=== PATIENT | female | born 1955 | race Caucasian/White ===

== ENCOUNTER 2017-02-20 15:11 | Emergency (ER) | payer BC ==
[2017-02-20] MEDS ORDERED: METHYLPREDNISOLONE ACETATE 80 MG/ML VIAL IM ONE (15:40)
[2017-02-20] MEDS ORDERED: ALBUTEROL SULFATE/IPRATROPIUM 3 ML NEBU IH ONE ×2 (15:40→15:53)
--- NOTE | 2017-02-20 15:48 | ERNOTE ---
Date of Service: 02/20/17 Time Seen by Provider: 02/20/17 15:34 Stated Complaint: COUGH, CHEST CONGESTION Presenting Symptoms:: cough, sore throat, runny nose, fever Source: patient Exam Limitations: no limitations Immunizations: IMMUNIZATION HX Immunizations Up to Date Yes History of Influenza Vaccine Yes Hx Pneumococcal Vaccination Yes Allergies/Adverse Reactions: Allergies aripiprazole [From Abilify] Allergy (Verified 02/20/17 15:30) Neuroleptic Syndrome bupropion HCl [From Wellbutrin] Adverse Reaction (Verified 02/20/17 15:30) Home Medications: HOME MEDICATIONS Colestipol HCl [Colestid] 2 g PO BID 12/05/14 [Last Taken 12/04/14] Cyclobenzaprine HCl [Flexeril] 10 mg PO TID PRN 12/05/14 [Last Taken 12/04/14] Estradiol [Estrace] 2 mg PO DAILY 12/05/14 [Last Taken 12/04/14] Furosemide [Lasix] 40 mg PO DAILY 12/05/14 [Last Taken 12/04/14] Levothyroxine Sodium [Synthroid] 75 mcg PO DAILY 12/05/14 [Last Taken 12/04/14] Meloxicam [Mobic] 15 mg PO DAILY 12/05/14 [Last Taken 12/04/14] Pioglitazone HCl [Actos] 30 mg PO DAILY 12/05/14 [Last Taken 12/04/14] metFORMIN HCL [Glumetza] 1,000 mg PO BID 12/05/14 [Last Taken 12/04/14] ALPRAZolam [Xanax] 0.5 mg PO BID PRN 12/06/14 [Last Taken Unknown] Acetaminophen [Tylenol] 650 mg PO QID PRN #1 tablet 12/08/14 [Last Taken Unknown ] Albuterol Sulfate [Albuterol Sulfate 2.5 MG/0.5ML] 1 vial IH Q4H PRN 11/27/15 [ Last Taken Unknown] Albuterol Sulfate [Ventolin HFA] 2 puff IH Q3H 11/27/15 [Last Taken Unknown] Cetirizine HCl [Zyrtec] 10 mg PO DAILY 11/27/15 [Last Taken Unknown] Desvenlafaxine Succinate [Pristiq] 100 mg PO DAILY 11/27/15 [Last Taken Unknown] Glimepiride [Amaryl] 4 mg PO BID 11/27/15 [Last Taken Unknown] HYDROcodone/ACETAMINOPHEN [Hydrocodon-Acetaminophn 10-325] 1 tab PO Q6H PRN 12/09 [Last Taken Unknown] Insulin Glargine,Hum.rec.anlog [Lantus Solostar] 33 unit SQ HS 11/27/15 [Last Taken Unknown] Isomethept/Dichlphn/Acetaminop [Dcawacjqnb-Zybhztowow-Wmwzfncs] 2 each PO Q1H PRN 11/27/15 [Last Taken Unknown] Metoprolol Succinate [Toprol Xl] 50 mg PO BID 11/27/15 [Last Taken Unknown] Zolpidem Tartrate [Ambien] 10 mg PO HS PRN 11/27/15 [Last Taken Unknown] Divalproex Sodium [Depakote] 250 mg PO BID 08/14/16 [Last Taken Unknown] Flecainide Acetate [Tambocor] 1 cap PO DAILY 08/14/16 [Last Taken Unknown] Morphine Sulfate [Ms Contin] 15 mg PO BID 08/14/16 [Last Taken Unknown] Doxycycline Monohydrate 100 mg PO BID #20 tablet 02/20/17 [Last Taken Unknown] Tiotropium [place] [Spiriva] 1 cap IH DAILY 02/20/17 [Last Taken Unknown] predniSONE [Prednisone] 3 tab PO DAILY #9 tab 02/20/17 [Last Taken Unknown] - History of Present Ilness Narrative: Pt. comes in with c/o cough, rhinorrhea, sore throat, ear pain, sinus congestion , chest congestion, SOB, wheezing, fever and malaise for a week. Pt. has a hx of lung disease and takes zithromax chronically which she ran out of last tuesday. Pt. tried augmentin without relief but states that symptoms are decreased with use of her nebulizer but she is using that more frequently. Pt. denies any chest pain or swelling. Review of Systems - Review of Systems Constitutional: Present: fever, chills, weakness, fatigue, malaise. Absent: recent illness EYE: Present: no symptoms reported ENT: Present: nose congestion, nasal drainage, sore throat Respiratory: Present: shortness of breath, cough, wheezing Cardiology: Present: no symptoms reported. Absent: chest pain, palpitations, edema Gastrointestinal/Abdominal: Present: no symptoms reported. Absent: nausea, vomiting, diarrhea Genitourinary: Present: no symptoms reported Musculoskeletal: Present: no symptoms reported. Absent: back pain, joint pain Skin: Present: no symptoms reported. Absent: rash, change in color Neurological: Present: no symptoms reported. Absent: headache, dizziness/light- headedness, numbness, tingling All Other Systems: All systems neg except as marked - Patient's Past Medical History Patient History - Medical: Arthritis, Chronic Pain, Diabetes Type 2, Depression , GERD, Hypothyroidism, Migraines Patient History - Cardiac/Respiratory: COPD Patient History - Cancer: No Hx of Cancer Patient History - Surgical Procedures: Appendectomy, Back Surgery, Cholecystectomy, D & C, Hysterectomy, Total Knee Replacement, Other Patient History - Other: None LMP (females 10-50): Menopausal - Family History Mother Family History - Medical: Dementia Family History - Cardiac/Respiratory: Other Sister Family History - Medical: GERD, Renal Failure Family History - Cardiac/Respiratory: Other - Social History Living Situations: home Abuse History: No History of abuse Psych History: No pertinent hx Does anyone smoke in the home?: Yes Smoking Status: Former smoker Alcohol Use: none Drug Use: none - Immunizations Immunizations Up to Date: Yes Hx Pneumococcal Vaccination: Yes History of Influenza Vaccine: Yes Physical Exam - Physical Exam General Appearance: Present: wd/wn, alert, no apparent distress Eye Exam: Normal inspection: bilateral, PERRL: bilateral, EOMI: bilateral Ears, Nose, Throat: Present: nasal congestion, normal pharynx, tonsillar exudate - clear Neck: Present: normal inspection, nontender. Absent: lymphadenopathy (R), lymphadenopathy (L) Respiratory: Present: no respiratory distress, no accessory muscle use, chest nontender, decreased breath sounds, wheezing - BUL Cardiovascular/Chest: Present: regular rate, rhythm, no murmur, normal peripheral pulses Gastrointestinal/Abdominal: Present: normal bowel sounds, nontender, nondistended, soft, no organomegaly Back Exam: Present: normal inspection Extremity Exam: Present: normal inspection, non-tender, normal range of motion, no edema Neurological Exam: Present: alert, oriented, normal mood/affect, no motor/ sensory deficits, attending psychiatrist II-XII nml as tested, normal cerebellar test Skin Exam: Present: warm/dry, pallor ED Progress - Date and Time Seen: Date and Time: 02/20/17 15:47 feel that pt. is hypertensive from use of bronchodilators and as she is not symptomatic from this feel that this should not be treated at this time as her BP will likely go down as she improves with her resp status. 02/20/17 16:44 Pt. is afebrile without hypoxia feel that we should start with outpatient treatment and then if pt. does not improve she may need inpatient treatment. - Results and Orders Patient's Lab Results:: I have reviewed the patient's lab results. - Vital Signs Patient's Vital Signs:: I have reviewed the patient's vital signs. Vital Signs: Vital Signs 02/20/17 15:20 Temperature 36.4 C L Pulse Rate 95 Respiratory 16 Rate Blood Pressure 182/87 O2 Sat by Pulse 94 Oximetry - X-Ray X-Ray #1 X-Ray: chest Interpretation: Interp. by me X-ray Comments: LLL consolidation - Progress/Reassessment Chief Complaint: Upper Respiratory Symptoms Departure - Departure Clinical Impression: Acute exacerbation of chronic obstructive pulmonary disease (COPD) Pneumonia Qualifiers: Pneumonia type: due to unspecified organism Laterality: left Lung location: lower lobe of lung Qualified Code(s): J18.1 - Lobar pneumonia, unspecified organism Disposition: Home self-care Condition: Good Instructions: Community-Acquired Pneumonia, Adult, [id number] Additional Instructions: Please continue taking nebulizer every four hours and follow up with Dr Aviles on Tuesday to follow course of pneumonia. Referrals: Marko Aviles MD [Primary Care Provider] - Prescriptions: Doxycycline Monohydrate 100 mg PO BID #20 tablet predniSONE [Prednisone] 3 tab PO DAILY #9 tab
--- OUTSIDE RECORDS SUMMARY | 2017-02-20 15:49 | XMS REPORT | Continuity of Care Document ---
:1955 Author Organization [facility] ([facility]) Address [address] [place] [address] Phone [phone] Care Team Providers Name Role Phone Lizz Harry Primary Care Provider [phone] Source Comments This disclosure is being made pursuant to the Care Everywhere program, applicable federal and state laws, and may not contain all informaitonavailable regarding this patient.[facility] ([facility]) Active Allergies and Adverse Reactions Allergen Noted Date Severity Reactions Comments Bupropion Urticaria (Hives) Current Medications Not on file Active Problems Problem Noted Date Unspecified symptom associated with female genital organs 08/25/2007 Unspecified asthma(493.90) 09/05/2006 Tachycardia, unspecified 09/05/2006 Immunizations Name Dates Previously Given Next Due Influenza, unspecified 07/13/2007 Pneumococcal, unspecified 07/18/2007 Social History Tobacco Use Types Packs/Day Years Used Date Never Assessed Last Filed Vital Signs Vital Sign Reading Time Taken Blood Pressure 137/76 09/20/2007 1:12 PM [employer] Pulse 89 09/20/2007 1:12 PM [employer] Temperature 36.3 C (97.34 F) 09/20/2007 1:12 PM [employer] Respiratory Rate 18 07/20/2007 8:00 AM CDT Height 1.66 m (5' 5.35") 07/17/2007 2:20 PM CDT Weight 101.098 kg (222 lb 14.1 oz) 07/17/2007 2:20 PM CDT Body Mass Index 36.69 07/17/2007 2:20 PM CDT Oxygen Saturation - - Plan of Care Health Maintenance Due Date Last Done Comments HCV Screening 1955 Hepatitis B Vaccine (1 of 3 - Primary Series) 1955 Tdap Vaccine 1968 Lipid Disorder Screening 1975 MMR Vaccine 1975 Td Vaccine 1975 Pneumococcal Vaccine (1 of 1 - PPSV23) 1976 Cervical Cancer Screening 1987 Mammogram 1997 Colonoscopy 2007 Influenza Vaccine: Seasonal (#1) 04/26/2016 07/13/2007 Results from Last 3 Months Not on file
--- OUTSIDE RECORDS SUMMARY | 2017-02-20 15:50 | XMS REPORT | Summary of Care ---
:1955 Author Organization [facility] Address [facility] [address] [place] [address] Care Team Providers Name Role Phone Traci, Marko Primary Care Physician Encounter Date(s): 11/17/16 - 11/17/16 [facility] [address] [phone] Discharge Disposition: Discharged to Home or Self Care Attending Physician: Colleen Kennedy MD Vital Signs No data available for this section Problem List Condition Effective Dates Status Health Status Informant ACHILLES BURSITIS OR Active TENDINITIS(Confirmed) Anemia(Confirmed) Resolved Anxiety(Confirmed) Active Asthma(Confirmed) Active Benign essential Resolved hypertension(Confirmed) Bowel obstruction(Confirmed) Resolved Chronic bronchitis(Confirmed) Active Depression(Confirmed) Active Esophageal reflux (GERD)(Confirmed) Active History of supraventricular Active tachycardia(Confirmed) Diabetes mellitus type Active II(Confirmed)1 Hypothyroidism(Confirmed) Active SVT - Supraventricular 2003 - 2003 Resolved tachycardia(Confirmed) Tenosynovitis of foot and ankle Active NEC(Confirmed) Tachycardia(Confirmed) Active 1DMII WO CMP NT ST UNCNTR Allergies, Adverse Reactions, Alerts Substance Reaction Severity Status Abilify Neuroleptic adverse reaction Active Wellbutrin1 Hives Severe Active 1Hives Medications Abilify 2 mg oral tablet 0.5 tab(s), Oral, Daily, # 15 tab(s), 2 Refill(s), Start Date: 10/28/15 13:29: 00 ROBIN VIEIRA, Pharmacy: [place], [place] Start Date: 10/28/15 Stop Date: 05/11/16 Status: CompletedActos 30 mg oral tablet 1 tab(s), Oral, Daily, 0 Refill(s) Start Date: 12/31/13 Status: OrderedActos 30 mg oral tablet 1 tab(s), Oral, Daily Start Date: 05/29/14 Stop Date: 06/17/14 Status: CompletedAdderall XR 20 mg oral capsule, extended release 1 cap(s), Oral, qAM, # 30 cap(s), 0 Refill(s), Start Date: 03/24/15 16:29:23 CDT , Pharmacy: [facility] Start Date: 03/24/15 Stop Date: 04/28/15 Status: CompletedAdderall XR 20 mg oral capsule, extended release 1 cap(s), Oral, qAM, # 30 cap(s), 0 Refill(s), Start Date: 04/28/15 11:03:00 CDT , Pharmacy: [facility] Start Date: 04/28/15 Stop Date: 05/23/15 Status: DiscontinuedAdderall XR 20 mg oral capsule, extended release 1 cap(s), Oral, qAM, # 30 cap(s), 0 Refill(s), Start Date: 02/21/15 8:32:00 CDT , Pharmacy: [facility] Start Date: 02/21/15 Stop Date: 03/24/15 Status: CompletedAdderall XR 30 mg oral capsule, extended release 1 cap(s), Oral, qAM, # 30 cap(s), 0 Refill(s), Start Date: 05/23/15 9:22:00 CDT , Pharmacy: [facility] Start Date: 05/23/15 Stop Date: 07/07/15 Status: CompletedAdderall XR 30 mg oral capsule, extended release 1 cap(s), Oral, qAM, # 30 cap(s), 0 Refill(s), Start Date: 08/04/15 15:12:00 SKATE BOARDER , Pharmacy: [facility] Start Date: 08/04/15 Stop Date: 09/23/15 Status: CompletedAdderall XR 30 mg oral capsule, extended release 1 cap(s), Oral, qAM, # 30 cap(s), 0 Refill(s), Start Date: 07/07/15 13:03:00 CDT , Pharmacy: [facility] Start Date: 07/07/15 Stop Date: 08/04/15 Status: CompletedAdderall XR 30 mg oral capsule, extended release 1 cap(s), Oral, qAM, # 30 cap(s), 0 Refill(s), Start Date: 09/23/15 11:54:00 SKATE BOARDER , Pharmacy: [place], [place] Start Date: 09/23/15 Stop Date: 10/28/15 Status: DiscontinuedAdvair Diskus 500 mcg-50 mcg inhalation powder 1 puff(s), Inhale, BID, 0 Refill(s) Start Date: 02/12/14 Stop Date: 02/19/14 Status: Completedalbuterol 2.5 mg/3 mL (0.083%) inhalation solution 3 mL, Inhale, q6hr interval, PRN shortness of breath or wheezing, 0 Refill(s) Start Date: 01/07/14 Status: Orderedalbuterol HFA See Instructions, 1-2 puffs every 4-6 hours as needed, 0 Refill(s) Special Instructions: 1-2 puffs every 4-6 hours as needed Start Date: 01/07/14 Stop Date: 10/07/14 Status: DiscontinuedALPRAZolam 0.5 mg oral tablet 1 tab(s), Oral, TID, for anxiety and tremors, # 90 tab(s), 1 Refill(s), Start Date: 10/29/15 16:28:00 SKATE BOARDER, Pharmacy: [place], [place] Special Instructions: for anxiety and tremors Start Date: 10/29/15 Status: OrderedALPRAZolam 0.5 mg oral tablet 1 tab(s), Oral, TID, for anxiety and tremors, # 90 tab(s), 1 Refill(s), Start Date: 04/25/15 14:27:00 CDT, Pharmacy: [facility] Special Instructions: for anxiety and tremors Start Date: 04/25/15 Stop Date: 06/25/15 Status: CompletedALPRAZolam 0.5 mg oral tablet 1 tab(s), Oral, TID, for anxiety and tremors, # 90 tab(s), 1 Refill(s), Start Date: 08/19/15 15:53:00 SKATE BOARDER, Pharmacy: [facility] Special Instructions: for anxiety and tremors Start Date: 08/19/15 Stop Date: 10/29/15 Status: CompletedALPRAZolam 0.5 mg oral tablet 1 tab(s), Oral, BID, for anxiety and tremors, 0 Refill(s), Start Date: 02/21/15 19:55:00 CDT Special Instructions: for anxiety and tremors Start Date: 02/21/15 Stop Date: 02/28/15 Status: DiscontinuedALPRAZolam 0.5 mg oral tablet 1 tab(s), Oral, TID, for anxiety and tremors, # 90 tab(s), 1 Refill(s), Start Date: 06/25/15 10:37:00 CDT, Pharmacy: [facility] Special Instructions: for anxiety and tremors Start Date: 06/25/15 Stop Date: 08/19/15 Status: CompletedALPRAZolam 0.5 mg oral tablet 1 tab(s), Oral, TID, for anxiety and tremors, # 90 tab(s), 1 Refill(s), Start Date: 02/28/15 14:20:00 CDT, Pharmacy: [facility] Special Instructions: for anxiety and tremors Start Date: 02/28/15 Stop Date: 04/25/15 Status: CompletedAmaryl 4 mg oral tablet 2 tab(s), Oral, Daily, 0 Refill(s) Start Date: 12/31/13 Stop Date: 06/17/14 Status: CompletedAmaryl 4 mg oral tablet 1 tab(s), Oral, BID Start Date: 05/29/14 Stop Date: 05/19/15 Status: CompletedAmaryl 4 mg oral tablet 2 tab(s), Oral, Daily, 0 Refill(s), Start Date: 05/19/15 9:09:00 CDT Start Date: 05/19/15 Status: OrderedAmbien 10 mg oral tablet 1 tab(s), Oral, HS, PRN for sleep, 0 Refill(s) Start Date: 12/31/13 Status: Orderedamoxicillin 500 mg oral capsule 1 cap(s), Oral, TID, # 30 cap(s), 0 Refill(s), Pharmacy: [facility] Start Date: 04/25/14 Stop Date: 06/17/14 Status: Completedamoxicillin 500 mg oral tablet 1 tab(s), Oral, TID, # 30 tab(s), 0 Refill(s), Pharmacy: [facility] Start Date: 05/16/14 Stop Date: 06/17/14 Status: Completedbenztropine 0.5 mg oral tablet 1 tab(s), Oral, BID, # 60 tab(s), 5 Refill(s), Start Date: 08/11/15 9:52:51 SKATE BOARDER , Pharmacy: [facility] Start Date: 08/11/15 Stop Date: 05/11/16 Status: Completedbenztropine 0.5 mg oral tablet 1 tab(s), Oral, BID, # 60 tab(s), 2 Refill(s), Start Date: 05/16/15 14:59:00 CDT , Pharmacy: [facility] Start Date: 05/16/15 Stop Date: 08/11/15 Status: Discontinuedbenztropine 0.5 mg oral tablet 1 tab(s), Oral, BID, # 60 tab(s), 2 Refill(s), Start Date: 02/05/15 11:25:46 CDT , Pharmacy: [facility] Start Date: 02/05/15 Stop Date: 05/16/15 Status: Completedbenztropine 0.5 mg oral tablet 1 tab(s), Oral, BID, # 60 tab(s), 2 Refill(s), Pharmacy: [facility] Start Date: 02/19/14 Stop Date: 05/06/14 Status: CompletedCeftin 500 mg oral tablet 1 tab(s), Oral, BID, will complete this weekend, 0 Refill(s), Start Date: 9:31:00 CDT Special Instructions: will complete this weekend Start Date: 12/19/14 Stop Date: 01/24/15 Status: Completedcetirizine 10 mg oral tablet 1 tab(s), Oral, Daily, # 30 tab(s), 5 Refill(s), Start Date: 01/07/14 17:11:00 CDT, Pharmacy: [facility] Start Date: 01/07/14 Stop Date: 07/12/14 Status: Completedcetirizine 10 mg oral tablet 1 tab(s), Oral, Daily, # 30 tab(s), 3 Refill(s), Start Date: 07/12/14 15:08:00 CDT, Pharmacy: [facility] Start Date: 07/12/14 Stop Date: 12/19/14 Status: CompletedChantix Continuing Month 1 mg oral tablet See Instructions, as directed on pkg labeling, # 56 tab(s), 0 Refill(s), Start Date: 09/09/14 15:52:00 SKATE [employer]ARDER, Pharmacy: [facility] Special Instructions: as directed on pkg labeling Start Date: 09/09/14 Stop Date: 12/09/14 Status: CompletedChantix Continuing Month 1 mg oral tablet 1 tab(s), Oral, BID, # 60 tab(s), 1 Refill(s), Start Date: 12/09/14 9:00:59 CDT , Pharmacy: [facility] Start Date: 12/09/14 Stop Date: 01/24/15 Status: CompletedChantix Starter Pack 0.5 mg-1 mg oral tablet See Instructions, as directed on pkg labeling, # 53 tab(s), 0 Refill(s), Start Date: 09/09/14 15:52:00 SKATE BOARDER, Pharmacy: [facility] Special Instructions: as directed on pkg labeling Start Date: 09/09/14 Stop Date: 11/12/14 Status: CompletedColestid 1 g oral tablet 1 tab(s), Oral, BID, 0 Refill(s) Start Date: 02/21/15 Status: OrderedColestid 1 g oral tablet 2 tab(s), Oral, BID, with a full glass of water, # 120 tab(s), 5 Refill(s), Pharmacy: [facility] Special Instructions: with a full glass of water Start Date: 05/29/14 Stop Date: 02/21/15 Status: DiscontinuedDepakene 250 mg oral capsule 1 cap(s), Oral, BID, 0 Refill(s), Start Date: 05/11/16 14:19:00 CDT Start Date: 05/11/16 Status: Ordereddextroamphetamine-amphetamine 20 mg oral capsule, extended release 2 cap(s), Oral, qAM, # 60 cap(s), 0 Refill(s), Start Date: 10/28/15 13:28:00 SKATE BOARDER , Pharmacy: [place], [place] Start Date: 10/28/15 Stop Date: 05/11/16 Status: CompletedDiflucan 150 mg oral tablet 1 tab(s), Oral, ONETIME, # 1 tab(s), 0 Refill(s), Pharmacy: [facility] Start Date: 05/16/14 Stop Date: 06/17/14 Status: CompletedDiflucan 150 mg oral tablet 1 tab(s), Oral, ONETIME, # 1 tab(s), 1 Refill(s), Start Date: 08/15/14 18:54:00 SKATE [employer]ARDER, Pharmacy: [facility] Start Date: 08/15/14 Stop Date: 10/07/14 Status: CompletedDiflucan 200 mg oral tablet 1 tab(s), Oral, Daily, will complete this weekend, 0 Refill(s), Start Date: 9:31:00 CDT Special Instructions: will complete this weekend Start Date: 12/19/14 Stop Date: 01/24/15 Status: Completeddoxycycline hyclate 100 mg oral capsule See Instructions, take 100mg twice daily for one day then 100mg daily for six days., # 8 cap(s), 0 Refill(s), Pharmacy: [facility] Special Instructions: take 100mg twice daily for one day then 100mg daily for six days. Start Date: 02/26/14 Stop Date: 03/05/14 Status: DiscontinuedDulera 200 mcg-5 mcg/inh inhalation aerosol 2 puff(s), Inhale, BID, rinse mouth and throat after use, # 2 EA, 3 Refill(s), Start Date: 01/03/15 16:24:37 CDT, Pharmacy: [facility], [id number], Special Instructions: rinse mouth and throat after use Start Date: 01/03/15 Stop Date: 02/23/15 Status: DiscontinuedDulera 200 mcg-5 mcg/inh inhalation aerosol 2 puff(s), Inhale, BID, # 1 QS, 11 Refill(s), Start Date: 01/09/16 8:35:00 CDT, Pharmacy: [place], [place] Start Date: 01/09/16 Status: OrderedDulera 200 mcg-5 mcg/inh inhalation aerosol 2 puff(s), Inhale, BID, rinse mouth and throat after use, # 2 EA, 0 Refill(s), Start Date: 11/12/14 11:48:00 SK[employer]ER, samples given to patient (Rx), [id number], 02/23 Special Instructions: rinse mouth and throat after use Start Date: 11/12/14 Stop Date: 01/03/15 Status: CompletedDulera 200 mcg-5 mcg/inh inhalation aerosol 2 puff(s), Inhale, BID, # 13 gm, 0 Refill(s), Start Date: 05/19/15 9:54:00 CDT Start Date: 05/19/15 Stop Date: 01/09/16 Status: Discontinuedestradiol 2 mg oral tablet 1 tab(s), Oral, Daily, 0 Refill(s) Start Date: 12/31/13 Status: OrderedExcedrin Menstrual Express Gels oral tablet tab(s), Oral, q6hr interval, 0 Refill(s) Start Date: 12/31/13 Stop Date: 02/19/14 Status: Completedflecainide 100 mg oral tablet 1 tab(s), Oral, q12hr, # 60 tab(s), 0 Refill(s), Start Date: 06/11/16 11:53:51 CDT, Pharmacy: [place], [place] Start Date: 06/11/16 Status: Orderedflecainide 100 mg oral tablet 1 tab(s), Oral, q12hr, # 60 tab(s), 6 Refill(s), Start Date: 05/14/16 9:28:53 CDT, Pharmacy: [place], [place] Start Date: 05/14/16 Stop Date: 06/11/16 Status: Completedflecainide 100 mg oral tablet 1 tab(s), Oral, q12hr, # 60 tab(s), 0 Refill(s), Start Date: 05/11/16 15:59:00 CDT Start Date: 05/11/16 Stop Date: 05/14/16 Status: DiscontinuedFlexeril 10 mg oral tablet 1 tab(s), Oral, TID, PRN as needed for muscle spasm, 0 Refill(s), Start Date: 17:31:00 CDT Start Date: 12/31/13 Status: Orderedfluticasone 50 mcg/inh nasal spray 2 spray(s), Nasal, Daily, # 1 EA, 1 Refill(s), Pharmacy: [facility] Start Date: 02/26/14 Stop Date: 05/06/14 Status: Completedhydrochlorothiazide 25 mg oral tablet 1 tab(s), Oral, Daily, 0 Refill(s) Start Date: 12/31/13 Stop Date: 02/19/14 Status: CompletedLantus Solostar Pen 24 units, Subcutaneous, HS, 0 Refill(s), Start Date: 10/07/14 12:59:00 SK[employer]ER Start Date: 10/07/14 Status: OrderedLasix 20 mg oral tablet 1 tab(s), Oral, Daily, 0 Refill(s) Start Date: 01/07/14 Stop Date: 02/19/14 Status: DiscontinuedLasix 20 mg oral tablet 1 tab(s), Oral, Daily, # 30 tab(s), 5 Refill(s), Pharmacy: [facility] Start Date: 01/07/14 Stop Date: 01/07/14 Status: DiscontinuedLasix 20 mg oral tablet 1 tab(s), Oral, Daily, # 30 tab(s), 5 Refill(s), Start Date: 02/15/14 16:28:00 CDT, Pharmacy: [facility] Start Date: 02/15/14 Stop Date: 08/30/14 Status: CompletedLasix 20 mg oral tablet 1 tab(s), Oral, Daily, # 30 tab(s), 0 Refill(s), Start Date: 02/20/15 11:50:17 CDT, Pharmacy: [facility] Start Date: 02/20/15 Status: OrderedLasix 20 mg oral tablet 1 tab(s), Oral, Daily, # 30 tab(s), 5 Refill(s), Start Date: 08/30/14 16:48:24 SK[employer]ARDER, Pharmacy: [facility] Start Date: 08/30/14 Stop Date: 02/20/15 Status: Completedlevofloxacin 750 mg oral tablet 1 tab(s), Oral, Daily, # 7 tab(s), 0 Refill(s), Start Date: 08/15/14 18:54:00 SKATE [employer]ER, Pharmacy: [facility] Start Date: 08/15/14 Stop Date: 10/07/14 Status: Completedlevothyroxine 25 mcg (0.025 mg) oral capsule See Instructions, 1 cap(s) Oral Daily, 0 Refill(s) Special Instructions: 1 cap(s) Oral Daily Start Date: 12/31/13 Stop Date: 02/19/14 Status: Completedlevothyroxine 50 mcg (0.05 mg) oral tablet 1 tab(s), Oral, Daily, # 30 tab(s), 0 Refill(s) Start Date: 12/31/13 Stop Date: 05/23/15 Status: Completedlevothyroxine 75 mcg (0.075 mg) oral tablet 1 tab(s), Oral, Daily, 0 Refill(s), Start Date: 05/19/15 9:10:00 CDT Start Date: 05/19/15 Status: Orderedlithium 150 mg oral capsule 1 cap(s), Oral, BID, # 60 cap(s), 2 Refill(s), Start Date: 01/24/15 8:24:00 CDT , Pharmacy: [facility] Start Date: 01/24/15 Stop Date: 02/21/15 Status: Discontinuedlithium 300 mg oral capsule 1 cap(s), Oral, Daily, 0 Refill(s) Start Date: 01/07/14 Stop Date: 03/05/14 Status: Discontinuedlithium 300 mg oral capsule 1 cap(s), Oral, BID, # 60 cap(s), 2 Refill(s), Start Date: 05/16/15 14:59:00 CDT , Pharmacy: [facility] Start Date: 05/16/15 Stop Date: 05/19/15 Status: Completedlithium 300 mg oral capsule 1 cap(s), Oral, BID, # 60 cap(s), 0 Refill(s), Start Date: 02/21/15 8:28:00 CDT , other reason (Rx) Start Date: 02/21/15 Stop Date: 05/16/15 Status: Completedlithium 300 mg oral tablet, extended release 1 tab(s), Oral, BID, # 60 tab(s), 2 Refill(s), Start Date: 05/16/15 21:15:00 CDT , Pharmacy: [facility] Start Date: 05/16/15 Stop Date: 08/11/15 Status: Discontinuedlithium 300 mg oral tablet, extended release 1 tab(s), Oral, BID, # 60 tab(s), 5 Refill(s), Start Date: 08/11/15 9:53:15 SKATE [employer]ARDER , Pharmacy: [facility] Start Date: 08/11/15 Stop Date: 05/11/16 Status: Completedlithium 300 mg oral tablet, extended release 1 tab(s), Oral, BID, # 60 tab(s), 4 Refill(s), Start Date: 10/18/14 15:10:32 SKATE [employer]ARDER , Pharmacy: [facility] Start Date: 10/18/14 Stop Date: 01/24/15 Status: Discontinuedlithium 300 mg oral tablet, extended release 1 tab(s), Oral, BID, # 60 tab(s), 4 Refill(s), Start Date: 05/21/14 15:58:00 CDT , Pharmacy: [facility] Start Date: 05/21/14 Stop Date: 10/18/14 Status: Completedlithium 300 mg oral tablet, extended release 1 tab(s), Oral, BID, # 60 tab(s), 2 Refill(s), Pharmacy: [facility] Start Date: 02/19/14 Stop Date: 05/21/14 Status: CompletedLORazepam 0.5 mg oral tablet 0.5 tab(s), Oral, BID, 0 Refill(s), Start Date: 05/11/16 14:18:00 CDT Start Date: 05/11/16 Status: OrderedmetFORMIN 1,000 mg, Oral, BID, 0 Refill(s) Start Date: 12/31/13 Stop Date: 05/11/16 Status: CompletedmetFORMIN 1000 mg oral tablet 1 tab(s), Oral, BID Start Date: 05/11/16 Status: Orderedmetoprolol 50 mg, Oral, BID, 0 Refill(s) Start Date: 01/07/14 Stop Date: 02/28/14 Status: DiscontinuedMetoprolol Tartrate 50 mg oral tablet 1 tab(s), Oral, BID, # 180 tab(s), 3 Refill(s), Start Date: 05/20/16 10:43:00 CDT, Pharmacy: [place] Start Date: 05/20/16 Status: OrderedMetoprolol Tartrate 50 mg oral tablet 1 tab(s), Oral, BID, # 180 tab(s), 0 Refill(s), Start Date: 02/28/14 13:30:00 CDT Start Date: 02/28/14 Stop Date: 05/20/16 Status: DiscontinuedMobic 15 mg oral tablet 1 tab(s), Oral, Daily, 0 Refill(s) Start Date: 12/31/13 Stop Date: 01/24/15 Status: CompletedMobic 15 mg oral tablet 1 tab(s), Oral, Daily, # 30 tab(s), 0 Refill(s), Start Date: 02/22/15 18:35:00 CDT Start Date: 02/22/15 Status: Orderedmodafinil 200 mg oral tablet 1 tab(s), Oral, qAM, # 30 tab(s), 5 Refill(s), Start Date: 04/25/15 8:00:00 CDT , Pharmacy: [facility] Start Date: 04/25/15 Stop Date: 05/23/15 Status: Discontinuedmodafinil 200 mg oral tablet 1 tab(s), Oral, qAM, # 30 tab(s), 3 Refill(s), Start Date: 12/19/14 9:20:09 CDT , Pharmacy: [facility] Start Date: 12/19/14 Stop Date: 02/21/15 Status: Discontinuedmodafinil 200 mg oral tablet 1 tab(s), Oral, qAM, # 30 tab(s), 3 Refill(s), Start Date: 07/31/14 8:20:00 SKATE [employer]ER , called to pharmacy (Rx) Start Date: 07/31/14 Stop Date: 12/19/14 Status: Completedmodafinil 200 mg oral tablet 1 tab(s), Oral, qAM, # 30 tab(s), 2 Refill(s) Start Date: 05/06/14 Stop Date: 10/09/14 Status: Discontinuednabumetone 750 mg oral tablet 1 tab(s), Oral, BID, 0 Refill(s) Start Date: 02/12/14 Stop Date: 02/19/14 Status: CompletedOne Touch Ultra Test Strips and One Touch UltraSoft Lancets One Touch Ultra Test Strips and One Touch UltraSoft Lancets, test blood sugar four times daily, 0 Refill(s) Special Instructions: test blood sugar four times daily Start Date: 02/12/14 Stop Date: 05/11/16 Status: [facility] 1 cap(s), Oral, Daily Start Date: 02/19/14 Stop Date: 05/06/14 Status: Completedpotassium chloride 10 mEq oral capsule, extended release 1 cap(s), Oral, Daily, # 30 cap(s), 3 Refill(s), Pharmacy: [facility] Start Date: 01/16/14 Stop Date: 06/17/14 Status: Completedpotassium chloride 10 mEq oral capsule, extended release 1 cap(s), Oral, Daily, # 30 cap(s), 3 Refill(s) Start Date: 01/16/14 Stop Date: 01/16/14 Status: CompletedPristiq 100 mg oral tablet, extended release 1 tab(s), Oral, Daily, # 30 tab(s), 4 Refill(s), Start Date: 09/16/14 15:46:39 SKATE [employer]ARDER, Pharmacy: [facility] Start Date: 09/16/14 Stop Date: 01/16/15 Status: CompletedPristiq 100 mg oral tablet, extended release 1 tab(s), Oral, Daily, # 60 tab(s), 2 Refill(s), Start Date: 05/23/15 9:23:04 CDT, Pharmacy: [facility] Start Date: 05/23/15 Stop Date: 08/11/15 Status: DiscontinuedPristiq 100 mg oral tablet, extended release 1 tab(s), Oral, Daily, # 60 tab(s), 5 Refill(s), Start Date: 08/11/15 9:52:57 SKATE [employer]ARDER, Pharmacy: [facility] Start Date: 08/11/15 Stop Date: 11/14/15 Status: CompletedPristiq 100 mg oral tablet, extended release 1 tab(s), Oral, Daily, # 30 tab(s), 2 Refill(s), Start Date: 01/16/15 15:47:58 CDT, Pharmacy: [facility] Start Date: 01/16/15 Stop Date: 03/24/15 Status: CompletedPristiq 100 mg oral tablet, extended release 1 tab(s), Oral, Daily, # 60 tab(s), 0 Refill(s), Start Date: 03/24/15 16:29:23 CDT, Pharmacy: [facility] Start Date: 03/24/15 Stop Date: 05/23/15 Status: DiscontinuedPristiq 100 mg oral tablet, extended release 1 tab(s), Oral, Daily, # 30 tab(s), 0 Refill(s) Start Date: 01/07/14 Stop Date: 03/05/14 Status: DiscontinuedPristiq 100 mg oral tablet, extended release 1 tab(s), Oral, Daily, # 60 tab(s), 5 Refill(s), Start Date: 11/14/15 11:45:00 SKATE [employer]ER, Pharmacy: [place], [place] Start Date: 11/14/15 Status: OrderedPristiq 100 mg oral tablet, extended release 1 tab(s), Oral, Daily, # 30 tab(s), 4 Refill(s), Start Date: 05/21/14 15:58:01 CDT, Pharmacy: [facility] Start Date: 05/21/14 Stop Date: 09/16/14 Status: CompletedPristiq 50 mg oral tablet, extended release 2 tab(s), Oral, Daily, #35 lot [id number] exp 12/08; #35 lot [id number] exp 10/10, # 70 tab(s), 0 Refill(s), samples given to patient (Rx) Special Instructions: #35 lot [id number] exp 12/08; #35 lot [id number] exp 10/10 Start Date: 02/19/14 Stop Date: 05/21/14 Status: CompletedProtonix 40 mg oral enteric coated tablet 1 tab(s), Oral, Daily, 0 Refill(s) Start Date: 12/31/13 Stop Date: 05/11/16 Status: CompletedQuestran 4 g/9 g oral powder for reconstitution 4 gm, Oral, Daily, # 120 gm, 11 Refill(s), Pharmacy: [facility] Start Date: 05/23/14 Stop Date: 06/17/14 Status: Completedsodium chloride 7% inhalation solution 4 mL, Inhale, QID, PRN congestion, USE WITH THE ALBUTEROL, 0 Refill(s), Start Date: 01/10/14 16:18:00 CDT Special Instructions: USE WITH THE ALBUTEROL Start Date: 01/10/14 Status: OrderedSymbicort 160 mcg-4.5 mcg/inh inhalation aerosol 2 puff(s), Inhale, BID, 0 Refill(s) Start Date: 02/12/14 Stop Date: 03/12/14 Status: DiscontinuedSymbicort 160 mcg-4.5 mcg/inh inhalation aerosol 2 puff(s), Inhale, BID, dx cough rinse mouth and throat after use, # 1 EA, 5 Refill(s), Start Date: 09/17/14 11:36:00 SK[employer]ER, Pharmacy: [facility] Special Instructions: dx cough rinse mouth and throat after use Start Date: 09/17/14 Stop Date: 11/12/14 Status: DiscontinuedSymbicort 160 mcg-4.5 mcg/inh inhalation aerosol 2 puff(s), Inhale, BID, # 1 EA, 5 Refill(s), Pharmacy: [facility] Start Date: 03/12/14 Stop Date: 11/12/14 Status: CompletedSymbicort 160 mcg-4.5 mcg/inh inhalation aerosol 2 puff(s), Inhale, BID, # 6 gm, 0 Refill(s), Start Date: 07/25/14 9:06:00 CDT Start Date: 07/25/14 Stop Date: 09/17/14 Status: DiscontinuedTessalon 200 mg oral capsule See Instructions, 1 cap(s) Oral TID as needed, # 30 cap(s), 0 Refill(s), Pharmacy: [facility] [id number] Special Instructions: 1 cap(s) Oral TID as needed Start Date: 01/02/14 Stop Date: 01/07/14 Status: Completedtheophylline 300 mg oral tablet, extended release 1 tab(s), Oral, q12hr interval, 0 Refill(s), Start Date: 11/17/16 13:17:00 [employer]ER Start Date: 11/17/16 Status: Orderedtobramycin 0.3% ophthalmic solution 1 drop(s), OPTH, QID, X 7 days, # 5 mL, 0 Refill(s), Pharmacy: [facility] [id number] Start Date: 12/31/13 Stop Date: 01/07/14 Status: CompletedTudorza Pressair 400 mcg/inh inhalation powder 1 puff(s), Inhale, BID, 0 Refill(s) Start Date: 01/07/14 Stop Date: 05/16/14 Status: DiscontinuedTudorza Pressair 400 mcg/inh inhalation powder 1 puff(s), Inhale, BID, 496/[id number], # 1 EA, 5 Refill(s), Start Date: 07/23/15 15 :41:17 CDT, Pharmacy: [facility] Special Instructions: 496/[id number] Start Date: 07/23/15 Stop Date: 07/24/15 Status: CompletedTudorza Pressair 400 mcg/inh inhalation powder 1 puff(s), Inhale, BID, J44.9, # 1 EA, 11 Refill(s), Start Date: 07/24/15 8:52: 26 CDT, Pharmacy: [facility] Special Instructions: J44.9 Start Date: 07/24/15 Status: OrderedTudorza Pressair 400 mcg/inh inhalation powder 1 puff(s), Inhale, BID, # 1 EA, 5 Refill(s), Start Date: 05/16/14 14:40:00 CDT, Pharmacy: [facility] Start Date: 05/16/14 Stop Date: 12/05/14 Status: CompletedTudorza Pressair 400 mcg/inh inhalation powder 1 puff(s), Inhale, BID, 496/493.90, X 30 days, # 1 EA, 5 Refill(s), Start Date: 12/05/14 9:38:26 CDT, Pharmacy: [facility] Special Instructions: 496/493.90 Start Date: 12/05/14 Stop Date: 07/23/15 Status: CompletedVentolin HFA 90 mcg/inh inhalation aerosol 2 puff(s), Inhale, QID, PRN as needed for wheezing, 0 Refill(s), Start Date: 9:54:00 CDT Start Date: 05/19/15 Status: OrderedXanax 0.5 mg oral tablet 1 tab(s), Oral, BID, PRN for anxiety, # 60 tab(s), 1 Refill(s), Start Date: 15:20:45 [employer], Pharmacy: [facility] Start Date: 10/17/14 Stop Date: 12/18/14 Status: CompletedXanax 0.5 mg oral tablet 1 tab(s), Oral, BID, PRN for anxiety, 0 Refill(s) Start Date: 02/12/14 Stop Date: 06/17/14 Status: CompletedXanax 0.5 mg oral tablet 1 tab(s), Oral, BID, PRN for anxiety, # 60 tab(s), 1 Refill(s), called to pharmacy (Rx) Start Date: 04/02/14 Stop Date: 06/21/14 Status: CompletedXanax 0.5 mg oral tablet 1 tab(s), Oral, BID, PRN for anxiety, # 60 tab(s), 1 Refill(s), Start Date: 12:56:04 CDT, called to pharmacy (Rx) Start Date: 06/21/14 Stop Date: 08/16/14 Status: CompletedXanax 0.5 mg oral tablet 1 tab(s), Oral, BID, PRN for anxiety, # 60 tab(s), 1 Refill(s), Start Date: 14:04:03 CDT, Pharmacy: [facility] Start Date: 12/18/14 Stop Date: 02/06/15 Status: CompletedXanax 0.5 mg oral tablet 1 tab(s), Oral, BID, PRN for anxiety, # 60 tab(s), 1 Refill(s), Start Date: 12:55:21 [employer], Pharmacy: [facility] Start Date: 08/16/14 Stop Date: 10/17/14 Status: CompletedXanax 0.5 mg oral tablet 1 tab(s), Oral, BID, PRN for anxiety, # 60 tab(s), 1 Refill(s), Start Date: 15:55:56 CDT, Pharmacy: [facility] Start Date: 02/06/15 Stop Date: 02/21/15 Status: Completed Results No data available for this section Immunizations Vaccine Date Refusal Reason influenza virus vaccine, inactivated 07/12/16 influenza virus vaccine, inactivated 07/29/14 influenza virus vaccine, inactivated 07/23/13 pneumococcal 23-polyvalent vaccine 05/20/14 tetanus-diphth toxoids (Td) adult/adol 08/06/11 Procedures Procedure Date Related Diagnosis Body Site Colonoscopy1 10/09/14 Breath Test Bacteria Lactulose2 04/18/14 Colonoscopy3 03/05/14 Esophagogastroduodenoscopy4 03/05/14 Revision of knee replacement 2010 Cervical discectomy 2009 Revision of knee replacement 2009 Exploratory laparotomy5 2007 Knee arthroplasty-bilateral6 2007 Lysis of adhesions7 2007 Repair of cystocele 2007 Appendectomy Bilateral replacement of knee joints Cardiac ablation using fluoroscopy guidance8 Cholecystectomy Hysterectomy Repair of cystocele Sling procedure of bladder neck 1auto-populated from documented surgical [id number] from documented surgical [id number] from documented surgical [id number] from documented surgical case5"Exploratory bowel surgery"6Knee arthroplasty- bilateral7"Lysis of adhesions from SBO"810-15 years ago, put unsure of year. Social History No data available for this section Assessment and Plan No data available for this section
--- OUTSIDE RECORDS SUMMARY | 2017-02-20 15:50 | XMS REPORT | Summary of Care ---
:1955 Author Organization [facility] Address [address] [place] [address] Care Team Providers Name Role Phone Marko Aviles Primary Care Physician Encounter Date(s): 11/17/16 - 11/17/16 [facility], [address] [place], [place] [id number] Discharge Diagnosis: Chronic bronchitis Discharge Disposition: 01 Discharged to Home or Self Care Attending Physician: Latanya Bradshaw MD Referring Physician: Latanya Bradshaw MD Vital Signs Most recent to oldest [Reference Range]: 1 Temperature Tympanic [36.6-38.1 DegC] 37.0 DegC (11/17/16 1:10 PM) Temperature C to F 98.6 (11/17/16 1:10 PM) Peripheral Pulse Rate [60-100 bpm] 90 bpm (11/17/16 1:10 PM) Respiratory Rate [12-20 br/min] 12 br/min (11/17/16 1:10 PM) SpO2 [90-100 %] 98 % (11/17/16 1:10 PM) SpO2 Location Left hand (11/17/16 1:10 PM) Blood Pressure [90-130/60-90 mmHg] 140/80mmHg *HI* (11/17/16 1:10 PM) Mean Arterial Pressure, Cuff 100 mmHg (11/17/16 1:10 PM) Most recent to oldest [Reference Range]: 1 Height/Length Measured 165 cm (11/17/16 1:10 PM) Weight Dosing 111.90 kg1 (11/17/16 1:17 PM) Weight Measured 111.9 kg (11/17/16 1:10 PM) BSA Measured 2.16 m2 (11/17/16 1:10 PM) Body Mass Index Measured 41.1 kg/m2 (11/17/16 1:10 PM) 1Result Comment: This result was because the dosing weight was either not entered or it is>30 days old. This result is based off: Weight Measured November 17, 2016 13:10:00 SHAREBROKER by Paula Liang RN Problem List Condition Effective Dates Status Health [...] 2 Refill(s), Start Date: 10/28/15 13:29: 00 SHAREBROKERROBIN, Pharmacy: [place], [place] Start Date: 10/28/15 Stop Date: 05/11/16 Status: CompletedActos 30 mg oral tablet 1 tab(s), Oral, Daily, 0 Refill(s) Start Date: 12/31/13 Status: OrderedActos 30 mg oral tablet 1 tab(s), Oral, Daily Start Date: 05/29/14 Stop Date: 06/17/14 Status: CompletedAdderall XR 20 mg oral capsule, extended release 1 cap(s), Oral, qAM, # 30 cap(s), 0 Refill(s), Start Date: 03/24/15 16:29:23 CDT , Pharmacy: [facility] Start Date: 03/24/15 Stop Date: 04/28/15 Status: CompletedAdderall XR 20 mg oral capsule, extended release 1 cap(s), Oral, qAM, # 30 cap(s), 0 Refill(s), Start Date: 04/28/15 11:03:00 CDT , Pharmacy: [facility] Start Date: 04/28/15 Stop Date: 05/23/15 Status: DiscontinuedAdderall XR 20 mg oral capsule, extended release 1 cap(s), Oral, qAM, # 30 cap(s), 0 Refill(s), Start Date: 02/21/15 8:32:00 CDT , Pharmacy: [facility] Start Date: 02/21/15 Stop Date: 03/24/15 Status: CompletedAdderall XR 30 mg oral capsule, extended release 1 cap(s), Oral, qAM, # 30 cap(s), 0 Refill(s), Start Date: 05/23/15 9:22:00 CDT , Pharmacy: [facility] Start Date: 05/23/15 Stop Date: 07/07/15 Status: CompletedAdderall XR 30 mg oral capsule, extended release 1 cap(s), Oral, qAM, # 30 cap(s), 0 Refill(s), Start Date: 08/04/15 15:12:00 SHAREBROKER , Pharmacy: [facility] Start Date: 08/04/15 Stop Date: 09/23/15 Status: CompletedAdderall XR 30 mg oral capsule, extended release 1 cap(s), Oral, qAM, # 30 cap(s), 0 Refill(s), Start Date: 07/07/15 13:03:00 CDT , Pharmacy: [facility] Start Date: 07/07/15 Stop Date: 08/04/15 Status: CompletedAdderall XR 30 mg oral capsule, extended release 1 cap(s), Oral, qAM, # 30 cap(s), 0 Refill(s), Start Date: 09/23/15 11:54:00 SHAREBROKER , Pharmacy: [place], [place] Start Date: 09/23/15 Stop Date: 10/28/15 [...] tab(s), 1 Refill(s), Start Date: 10/29/15 16:28:00 SHAREBROKER, Pharmacy: [place], [place] Special Instructions: for anxiety and tremors Start Date: 10/29/15 Status: OrderedALPRAZolam 0.5 mg oral tablet 1 tab(s), Oral, TID, for anxiety and tremors, # 90 tab(s), 1 Refill(s), Start Date: 04/25/15 14:27:00 CDT, Pharmacy: [facility] Special Instructions: for anxiety and tremors Start Date: 04/25/15 Stop Date: 06/25/15 Status: CompletedALPRAZolam 0.5 mg oral tablet 1 tab(s), Oral, TID, for anxiety and tremors, # 90 tab(s), 1 Refill(s), Start Date: 08/19/15 15:53:00 SHAREBROKER, Pharmacy: [facility] Special Instructions: for anxiety and tremors [...] Refill(s), Start Date: 06/25/15 10:37:00 CDT, Pharmacy: [facility] Special Instructions: for anxiety and tremors Start Date: 06/25/15 Stop Date: 08/19/15 Status: CompletedALPRAZolam 0.5 mg oral tablet 1 tab(s), Oral, TID, for anxiety and tremors, # 90 tab(s), 1 Refill(s), Start Date: 02/28/15 14:20:00 CDT, Pharmacy: [facility] Special Instructions: for anxiety and tremors [...] TID, # 30 cap(s), 0 Refill(s), Pharmacy: [facility] Start Date: 04/25/14 Stop Date: 06/17/14 Status: Completedamoxicillin 500 mg oral tablet 1 tab(s), Oral, TID, # 30 tab(s), 0 Refill(s), Pharmacy: [facility] Start Date: 05/16/14 Stop Date: 06/17/14 Status: Completedbenztropine 0.5 mg oral tablet 1 tab(s), Oral, BID, # 60 tab(s), 5 Refill(s), Start Date: 08/11/15 9:52:51 SHAREBROKER , Pharmacy: [facility] Start Date: 08/11/15 Stop Date: 05/11/16 Status: Completedbenztropine 0.5 mg oral tablet 1 tab(s), Oral, BID, # 60 tab(s), 2 Refill(s), Start Date: 05/16/15 14:59:00 CDT , Pharmacy: [facility] Start Date: 05/16/15 Stop Date: 08/11/15 Status: Discontinuedbenztropine 0.5 mg oral tablet 1 tab(s), Oral, BID, # 60 tab(s), 2 Refill(s), Start Date: 02/05/15 11:25:46 CDT , Pharmacy: [facility] Start Date: 02/05/15 Stop Date: 05/16/15 Status: Completedbenztropine 0.5 mg oral tablet 1 tab(s), Oral, BID, # 60 tab(s), 2 Refill(s), Pharmacy: [facility] Start Date: 02/19/14 Stop Date: 05/06/14 Status: CompletedCeftin 500 mg oral tablet 1 tab(s), Oral, BID, will complete this weekend, 0 Refill(s), Start Date: 9:31:00 CDT Special Instructions: will complete this weekend Start Date: 12/19/14 Stop Date: 01/24/15 Status: Completedcetirizine 10 mg oral tablet 1 tab(s), Oral, Daily, # 30 tab(s), 5 Refill(s), Start Date: 01/07/14 17:11:00 CDT, Pharmacy: [facility] Start Date: 01/07/14 Stop Date: 07/12/14 Status: Completedcetirizine 10 mg oral tablet 1 tab(s), Oral, Daily, # 30 tab(s), 3 Refill(s), Start Date: 07/12/14 15:08:00 CDT, Pharmacy: [facility] Start Date: 07/12/14 Stop Date: 12/19/14 Status: CompletedChantix Continuing Month 1 mg oral tablet See Instructions, as directed on pkg labeling, # 56 tab(s), 0 Refill(s), Start Date: 09/09/14 15:52:00 SHAREBROKER, Pharmacy: [facility] Special Instructions: as directed on pkg labeling Start Date: 09/09/14 Stop Date: 12/09/14 Status: CompletedChantix Continuing Month 1 mg oral tablet 1 tab(s), Oral, BID, # 60 tab(s), 1 Refill(s), Start Date: 12/09/14 9:00:59 CDT , Pharmacy: [facility] Start Date: 12/09/14 Stop Date: 01/24/15 Status: CompletedChantix Starter Pack 0.5 mg-1 mg oral tablet See Instructions, as directed on pkg labeling, # 53 tab(s), 0 Refill(s), Start Date: 09/09/14 15:52:00 SHAREBROKER, Pharmacy: [facility] Special Instructions: as directed on pkg labeling Start Date: 09/09/14 Stop Date: 11/12/14 Status: CompletedColestid 1 g oral tablet 1 tab(s), Oral, BID, 0 Refill(s) Start Date: 02/21/15 Status: OrderedColestid 1 g oral tablet 2 tab(s), Oral, BID, with a full glass of water, # 120 tab(s), 5 Refill(s), Pharmacy: [facility] Special Instructions: with a full glass of water Start Date: 05/29/14 Stop Date: 02/21/15 Status: DiscontinuedDepakene 250 mg oral capsule 1 cap(s), Oral, BID, 0 Refill(s), Start Date: 05/11/16 14:19:00 CDT Start Date: 05/11/16 Status: Ordereddextroamphetamine-amphetamine 20 mg oral capsule, extended release 2 cap(s), Oral, qAM, # 60 cap(s), 0 Refill(s), Start Date: 10/28/15 13:28:00 SHAREBROKER , Pharmacy: [place], [place] Start Date: 10/28/15 Stop Date: 05/11/16 Status: CompletedDiflucan 150 mg oral tablet 1 tab(s), Oral, ONETIME, # 1 tab(s), 0 Refill(s), Pharmacy: [facility] Start Date: 05/16/14 Stop Date: 06/17/14 Status: CompletedDiflucan 150 mg oral tablet 1 tab(s), Oral, ONETIME, # 1 tab(s), 1 Refill(s), Start Date: 08/15/14 18:54:00 SHAREBROKER, Pharmacy: [facility] Start Date: 08/15/14 Stop Date: 10/07/14 [...] days., # 8 cap(s), 0 Refill(s), Pharmacy: [facility] Special Instructions: take 100mg twice daily for one day then 100mg daily for six days. Start Date: 02/26/14 Stop Date: 03/05/14 Status: DiscontinuedDulera 200 mcg-5 mcg/inh inhalation aerosol 2 puff(s), Inhale, BID, rinse mouth and throat after use, # 2 EA, 3 Refill(s), Start Date: 01/03/15 16:24:37 CDT, Pharmacy: [facility], [id number], Special Instructions: rinse mouth and throat after use Start Date: 01/03/15 Stop Date: 02/23/15 Status: DiscontinuedDulera 200 mcg-5 mcg/inh inhalation aerosol 2 puff(s), Inhale, BID, # 1 QS, 11 Refill(s), Start Date: 01/09/16 8:35:00 CDT, Pharmacy: [place], [place] Start Date: 01/09/16 Status: OrderedDulera 200 mcg-5 mcg/inh inhalation aerosol 2 puff(s), Inhale, BID, rinse mouth and throat after use, # 2 EA, 0 Refill(s), Start Date: 11/12/14 11:48:00 SHAREBROKER, samples given to patient (Rx), [id number], 02/23 Special Instructions: rinse mouth and throat [...] Refill(s), Start Date: 06/11/16 11:53:51 CDT, Pharmacy: [place], [place] Start Date: 06/11/16 Status: Orderedflecainide 100 mg oral tablet 1 tab(s), Oral, q12hr, # 60 tab(s), 6 Refill(s), Start Date: 05/14/16 9:28:53 CDT, Pharmacy: [place], [place] Start Date: 05/14/16 Stop Date: 06/11/16 [...] Daily, # 1 EA, 1 Refill(s), Pharmacy: [facility] Start Date: 02/26/14 Stop Date: 05/06/14 Status: Completedhydrochlorothiazide 25 mg oral tablet 1 tab(s), Oral, Daily, 0 Refill(s) Start Date: 12/31/13 Stop Date: 02/19/14 Status: CompletedLantus Solostar Pen 24 units, Subcutaneous, HS, 0 Refill(s), Start Date: 10/07/14 12:59:00 SH[employer]BROKER Start Date: 10/07/14 Status: OrderedLasix 20 mg oral tablet 1 tab(s), Oral, Daily, 0 Refill(s) Start Date: 01/07/14 Stop Date: 02/19/14 Status: DiscontinuedLasix 20 mg oral tablet 1 tab(s), Oral, Daily, # 30 tab(s), 5 Refill(s), Pharmacy: [facility] Start Date: 01/07/14 Stop Date: 01/07/14 Status: DiscontinuedLasix 20 mg oral tablet 1 tab(s), Oral, Daily, # 30 tab(s), 5 Refill(s), Start Date: 02/15/14 16:28:00 CDT, Pharmacy: [facility] Start Date: 02/15/14 Stop Date: 08/30/14 Status: CompletedLasix 20 mg oral tablet 1 tab(s), Oral, Daily, # 30 tab(s), 0 Refill(s), Start Date: 02/20/15 11:50:17 CDT, Pharmacy: [facility] Start Date: 02/20/15 Status: OrderedLasix 20 mg oral tablet 1 tab(s), Oral, Daily, # 30 tab(s), 5 Refill(s), Start Date: 08/30/14 16:48:24 SHAREBROKER, Pharmacy: [facility] Start Date: 08/30/14 Stop Date: 02/20/15 Status: Completedlevofloxacin 750 mg oral tablet 1 tab(s), Oral, Daily, # 7 tab(s), 0 Refill(s), Start Date: 08/15/14 18:54:00 SHAREBROKER, Pharmacy: [facility] Start Date: 08/15/14 Stop Date: 10/07/14 [...] Start Date: 01/24/15 8:24:00 CDT , Pharmacy: [facility] Start Date: 01/24/15 Stop Date: 02/21/15 Status: Discontinuedlithium 300 mg oral capsule 1 cap(s), Oral, Daily, 0 Refill(s) Start Date: 01/07/14 Stop Date: 03/05/14 Status: Discontinuedlithium 300 mg oral capsule 1 cap(s), Oral, BID, # 60 cap(s), 2 Refill(s), Start Date: 05/16/15 14:59:00 CDT , Pharmacy: [facility] Start Date: 05/16/15 Stop Date: 05/19/15 Status: Completedlithium 300 mg oral capsule 1 cap(s), Oral, BID, # 60 cap(s), 0 Refill(s), Start Date: 02/21/15 8:28:00 CDT , other reason (Rx) Start Date: 02/21/15 Stop Date: 05/16/15 Status: Completedlithium 300 mg oral tablet, extended release 1 tab(s), Oral, BID, # 60 tab(s), 2 Refill(s), Start Date: 05/16/15 21:15:00 CDT , Pharmacy: [facility] Start Date: 05/16/15 Stop Date: 08/11/15 Status: Discontinuedlithium 300 mg oral tablet, extended release 1 tab(s), Oral, BID, # 60 tab(s), 5 Refill(s), Start Date: 08/11/15 9:53:15 SHAREBROKER , Pharmacy: [facility] Start Date: 08/11/15 Stop Date: 05/11/16 Status: Completedlithium 300 mg oral tablet, extended release 1 tab(s), Oral, BID, # 60 tab(s), 4 Refill(s), Start Date: 10/18/14 15:10:32 SHAREBROKER , Pharmacy: [facility] Start Date: 10/18/14 Stop Date: 01/24/15 Status: Discontinuedlithium 300 mg oral tablet, extended release 1 tab(s), Oral, BID, # 60 tab(s), 4 Refill(s), Start Date: 05/21/14 15:58:00 CDT , Pharmacy: [facility] Start Date: 05/21/14 Stop Date: 10/18/14 Status: Completedlithium 300 mg oral tablet, extended release 1 tab(s), Oral, BID, # 60 tab(s), 2 Refill(s), Pharmacy: [facility] Start Date: 02/19/14 Stop Date: 05/21/14 [...] Refill(s), Start Date: 05/20/16 10:43:00 CDT, Pharmacy: [place], [place] Start Date: 05/20/16 Status: OrderedMetoprolol Tartrate [...] Start Date: 04/25/15 8:00:00 CDT , Pharmacy: [facility] Start Date: 04/25/15 Stop Date: 05/23/15 Status: Discontinuedmodafinil 200 mg oral tablet 1 tab(s), Oral, qAM, # 30 tab(s), 3 Refill(s), Start Date: 12/19/14 9:20:09 CDT , Pharmacy: [facility] Start Date: 12/19/14 Stop Date: 02/21/15 Status: Discontinuedmodafinil 200 mg oral tablet 1 tab(s), Oral, qAM, # 30 tab(s), 3 Refill(s), Start Date: 07/31/14 8:20:00 SHAREBROKER , called to pharmacy (Rx) Start Date: [...] Start Date: 02/12/14 Stop Date: 05/11/16 Status: [facility] 1 cap(s), Oral, Daily Start Date: 02/19/14 Stop Date: 05/06/14 Status: Completedpotassium chloride 10 mEq oral capsule, extended release 1 cap(s), Oral, Daily, # 30 cap(s), 3 Refill(s), Pharmacy: [facility] Start Date: 01/16/14 Stop Date: 06/17/14 Status: Completedpotassium chloride 10 mEq oral capsule, extended release 1 cap(s), Oral, Daily, # 30 cap(s), 3 Refill(s) Start Date: 01/16/14 Stop Date: 01/16/14 Status: CompletedPristiq 100 mg oral tablet, extended release 1 tab(s), Oral, Daily, # 30 tab(s), 4 Refill(s), Start Date: 09/16/14 15:46:39 SHAREBROKER, Pharmacy: [facility] Start Date: 09/16/14 Stop Date: 01/16/15 Status: CompletedPristiq 100 mg oral tablet, extended release 1 tab(s), Oral, Daily, # 60 tab(s), 2 Refill(s), Start Date: 05/23/15 9:23:04 CDT, Pharmacy: [facility] Start Date: 05/23/15 Stop Date: 08/11/15 Status: DiscontinuedPristiq 100 mg oral tablet, extended release 1 tab(s), Oral, Daily, # 60 tab(s), 5 Refill(s), Start Date: 08/11/15 9:52:57 SHAREBROKER, Pharmacy: [facility] Start Date: 08/11/15 Stop Date: 11/14/15 Status: CompletedPristiq 100 mg oral tablet, extended release 1 tab(s), Oral, Daily, # 30 tab(s), 2 Refill(s), Start Date: 01/16/15 15:47:58 CDT, Pharmacy: [facility] Start Date: 01/16/15 Stop Date: 03/24/15 Status: CompletedPristiq 100 mg oral tablet, extended release 1 tab(s), Oral, Daily, # 60 tab(s), 0 Refill(s), Start Date: 03/24/15 16:29:23 CDT, Pharmacy: [facility] Start Date: 03/24/15 Stop Date: 05/23/15 Status: DiscontinuedPristiq 100 mg oral tablet, extended release 1 tab(s), Oral, Daily, # 30 tab(s), 0 Refill(s) Start Date: 01/07/14 Stop Date: 03/05/14 Status: DiscontinuedPristiq 100 mg oral tablet, extended release 1 tab(s), Oral, Daily, # 60 tab(s), 5 Refill(s), Start Date: 11/14/15 11:45:00 SHAREBROKER, Pharmacy: [place], [place] Start Date: 11/14/15 Status: OrderedPristiq 100 mg oral tablet, extended release 1 tab(s), Oral, Daily, # 30 tab(s), 4 Refill(s), Start Date: 05/21/14 15:58:01 CDT, Pharmacy: [facility] Start Date: 05/21/14 Stop Date: 09/16/14 Status: CompletedPristiq 50 mg oral tablet, extended release 2 tab(s), Oral, Daily, #35 lot [id number] exp 12/08; #35 lot [id number] exp 10/10, # 70 tab(s), 0 Refill(s), samples given to patient (Rx) Special Instructions: #35 lot [id number] exp 12/08; #35 lot [id number] exp 10/10 Start Date: 02/19/14 Stop Date: 05/21/14 Status: CompletedProtonix 40 mg oral enteric coated tablet 1 tab(s), Oral, Daily, 0 Refill(s) Start Date: 12/31/13 Stop Date: 05/11/16 Status: CompletedQuestran 4 g/9 g oral powder for reconstitution 4 gm, Oral, Daily, # 120 gm, 11 Refill(s), Pharmacy: [facility] Start Date: 05/23/14 Stop Date: 06/17/14 [...] EA, 5 Refill(s), Start Date: 09/17/14 11:36:00 SHAREBROKER, Pharmacy: [facility] Special Instructions: dx cough rinse mouth and throat after use Start Date: 09/17/14 Stop Date: 11/12/14 Status: DiscontinuedSymbicort 160 mcg-4.5 mcg/inh inhalation aerosol 2 puff(s), Inhale, BID, # 1 EA, 5 Refill(s), [facility] Start Date: 03/12/14 Stop Date: 11/12/14 Status: CompletedSymbicort 160 mcg-4.5 mcg/inh inhalation aerosol 2 puff(s), Inhale, BID, # 6 gm, 0 Refill(s), Start Date: 07/25/14 9:06:00 CDT Start Date: 07/25/14 Stop Date: 09/17/14 Status: DiscontinuedTessalon 200 mg oral capsule See Instructions, 1 cap(s) Oral TID as needed, # 30 cap(s), 0 Refill(s), Pharmacy: [facility] [id number] Special Instructions: 1 cap(s) Oral TID as needed Start Date: 01/02/14 Stop Date: 01/07/14 Status: Completedtheophylline 300 mg oral tablet, extended release 1 tab(s), Oral, q12hr interval, 0 Refill(s), Start Date: 11/17/16 13:17:00 SH[employer]BROKER Start Date: 11/17/16 Status: Orderedtobramycin 0.3% ophthalmic solution 1 drop(s), OPTH, QID, X 7 days, # 5 mL, 0 Refill(s), Pharmacy: [facility] [id number] Start Date: 12/31/13 Stop Date: 01/07/14 Status: CompletedTudorza Pressair 400 mcg/inh inhalation powder 1 puff(s), Inhale, BID, 0 Refill(s) Start Date: 01/07/14 Stop Date: 05/16/14 Status: DiscontinuedTudorza Pressair 400 mcg/inh inhalation powder 1 puff(s), Inhale, BID, 496/493.90, # 1 EA, 5 Refill(s), Start Date: 07/23/15 15 :41:17 CDT, Pharmacy: [facility] Special Instructions: 496/493.90 Start Date: 07/23/15 Stop Date: 07/24/15 Status: CompletedTudorza Pressair 400 mcg/inh inhalation powder 1 puff(s), Inhale, BID, J44.9, # 1 EA, 11 Refill(s), Start Date: 07/24/15 8:52: 26 CDT, Pharmacy: [facility] Special Instructions: J44.9 Start Date: 07/24/15 Status: OrderedTudorza Pressair 400 mcg/inh inhalation powder 1 puff(s), Inhale, BID, # 1 EA, 5 Refill(s), Start Date: 05/16/14 14:40:00 CDT, Pharmacy: [facility] Start Date: 05/16/14 Stop Date: 12/05/14 Status: CompletedTudorza Pressair 400 mcg/inh inhalation powder 1 puff(s), Inhale, BID, 496/493.90, X 30 days, # 1 EA, 5 Refill(s), Start Date: 12/05/14 9:38:26 CDT, Pharmacy: [facility] Special Instructions: 496/493.90 Start Date: 12/05/14 Stop Date: 07/23/15 Status: CompletedVentolin HFA 90 mcg/inh inhalation aerosol 2 puff(s), Inhale, QID, PRN as needed for wheezing, 0 Refill(s), Start Date: 9:54:00 CDT Start Date: 05/19/15 Status: OrderedXanax 0.5 mg oral tablet 1 tab(s), Oral, BID, PRN for anxiety, # 60 tab(s), 1 Refill(s), Start Date: 15:20:45 SHAREBROKER, Pharmacy: [facility] Start Date: 10/17/14 Stop Date: 12/18/14 [...] 1 Refill(s), Start Date: 14:04:03 CDT, Pharmacy: [facility] Start Date: 12/18/14 Stop Date: 02/06/15 Status: CompletedXanax 0.5 mg oral tablet 1 tab(s), Oral, BID, PRN for anxiety, # 60 tab(s), 1 Refill(s), Start Date: 12:55:21 SHAREBROKER, Pharmacy: [facility] Start Date: 08/16/14 Stop Date: 10/17/14 Status: CompletedXanax 0.5 mg oral tablet 1 tab(s), Oral, BID, PRN for anxiety, # 60 tab(s), 1 Refill(s), Start Date: 15:55:56 CDT, Pharmacy: [facility] Start Date: 02/06/15 Stop Date: 02/21/15 Status: Completed Results Patient Viewable Results Most recent to oldest [Reference Range]: 1 FIO2 21 % (11/17/16 1:10 PM) Immunizations Vaccine Date Refusal Reason influenza virus [...] Lysis of adhesions7 2007 Repair of cystocele 2006 Appendectomy Bilateral replacement of knee joints Cardiac ablation using fluoroscopy guidance8 Cholecystectomy Hysterectomy Repair of cystocele Sling procedure of bladder neck 1auto-populated from documented surgical [id number] from documented surgical [id number] from documented surgical [id number] from documented surgical case5"Exploratory bowel surgery"6Knee arthroplasty- bilateral7"Lysis of adhesions from SBO"810-15 years ago, put unsure of year. Social History No data available for this section Assessment and Plan No data available for this section
[2017-02-20] MEDS ORDERED: METHYLPREDNISOLONE ACETATE 80 MG/ML VIAL ONE (15:52)
[2017-02-20 16:13] LABS: Hematocrit 34.6 % (37.0-47.0); Hemoglobin 10.5 gm/dL (12.5-16.0); Mean Cell Volume 90.3 fl (78-100); Mean Corpuscular Hemoglobin 27.4 pg (27-31); Mean Corpuscular Hgb Conc 30.3 g/dl (32-36); Mean Platelet Volume 10.1 fl (6.0-9.5); Neutrophil # 3.9 K/mm3 (1.3-6.0); Neutrophil % 59.8 % (42-75.0); Platelet Count 217 K/mm3 (150-450); Red Blood Count 3.83 M/mm3 (4.2-5.4); Red Cell Distribution Width 15.4 % (11.5-14.0); White Blood Count 6.6 K/mm3 (4.0-10.5)
[2017-02-20 16:25] VITALS: BP 164/77
[2017-02-20 16:27] LABS: Albumin * 2.9 gm/dl (3.4-5.0); Anion Gap 9.5 mmol/L (6.8-13.8); BUN/Creatinine Ratio 10.6 (9.0-21.6); Bilirubin, Total 0.1 mg/dL (0.0-1.1); Ca. Corrected For Albumin 9.2 mg/dL (8.4-10.2); Calcium * 8.6 mg/dL (7.9-10.9); Carbon Dioxide 32.8 mmol/L (24-32.6); Potassium 4.3 mmol/L (3.4-4.6); Total Protein 6.4 gm/dL (6.2-8.2)
[2017-02-20] MEDS ORDERED: DOXYCYCLINE HYCLATE 100 MG TABLET PO ONE (16:48)
[2017-02-20] MEDS ORDERED: DOXYCYCLINE HYCLATE 100 MG TABLET ONE (16:48)
== END 2017-02-20 16:55 | disposition home or self-care (01) ==
LOC: ER 15:11
DX: J44.9 Chronic obstructive pulmonary disease, unspecified (principal); J18.1 Lobar pneumonia, unspecified organism; Z87.891 Personal history of nicotine dependence; E11.9 Type 2 diabetes mellitus without complications; Z79.4 Long term (current) use of insulin

== ENCOUNTER 2018-11-11 17:57 | Observation (INO) ==
[2018-11-11] MEDS ORDERED: ALBUTEROL SULFATE/IPRATROPIUM 3 ML NEBU IH ONE (18:43)
[2018-11-11] MEDS ORDERED: predniSONE 20 MG TABLET PO ONE (18:43)
--- NOTE | 2018-11-11 18:53 | ERNOTE ---
Dyspnea - General Presenting Symptoms: shortness of breath, difficulty of breathing Time Seen by Provider: 11/11/18 18:09 Source: patient, family Exam Limitations: no limitations - Immun/Allergies/Home Medications Immunizations: IMMUNIZATION HX Immunizations Up to Date Yes History of Influenza Vaccine Yes Hx Pneumococcal Vaccination Yes Allergies/Adverse Reactions: Allergies aripiprazole [From Abilify] Allergy (Verified 11/08/18 14:40) Neuroleptic Syndrome bupropion HCl [From Wellbutrin] Adverse Reaction (Verified 11/08/18 14:40) Home Medications: HOME MEDICATIONS Albuterol Sulfate [Albuterol Sulfate 2.5 MG/0.5ML] 1 vial IH Q6H PRN 11/27/15 [Last Taken Unknown] Ferrous Sulfate [Iron] 325 mg PO DAILY 09/02/17 [Last Taken 11/08/17 08:00] Ipratropium/Albuterol Sulfate [Iprat-Albut 0.5-3(2.5) mg/3 ml] 3 ml IH QID 09/02/17 [Last Taken 11/07/17 22:00] Cetirizine HCl 10 mg PO HS 11/16/17 [Last Taken Unknown] Cholecalciferol (Vitamin D3) [Vitamin D3] 10,000 unit PO DAILY 11/16/17 [Last Taken Unknown] Clobetasol Propionate/Emoll [Clobetasol Emollient 0.05% Crm] 1 appl TP BID 11/16/17 [Last Taken Unknown] Pioglitazone HCl 30 mg PO DAILY 11/16/17 [Last Taken Unknown] Metoprolol Succinate [Toprol Xl] 25 mg PO BID #60 tablet.sa 11/18/17 [Last Taken Unknown] divalproex 250 mg tablet,delayed release 250 mg PO BID #60 tab 04/05/18 [Last Taken Unknown] desvenlafaxine succinate ER 100 mg tablet,extended release 24 hr 100 mg PO DAILY #90 tab 05/08/18 [Last Taken Unknown] cyclobenzaprine 10 mg tablet 10 mg PO HS #30 tab 06/06/18 [Last Taken Unknown] flecainide 100 mg tablet 50 mg PO BID #60 tab 06/22/18 [Last Taken Unknown] ipratropium-albuterol 0.5 mg-3 mg(2.5 mg base)/3 mL nebulization soln 3 ml IH Q4H #180 ml 07/04/18 [Last Taken Unknown] glimepiride 4 mg tablet 4 mg PO BID #60 tab 07/31/18 [Last Taken Unknown] alprazolam 0.5 mg tablet 0.5 mg PO TID PRN #60 tab 08/14/18 [Last Taken Unknown] nebulizer tubing 0 .ROUTE .MEDSUPPLY #1 ea 08/30/18 [Last Taken Unknown] levothyroxine 112 mcg tablet 112 mcg PO DAILY #30 tab 09/25/18 [Last Taken Unknown] cjpwvfvnfjdaj-qawtgbvcvrdae-ijhuusodrhcbz 65 mg-100 mg-325 mg capsule See Rx Instructions .ROUTE .COMPLEX #45 cap 10/06/18 [Last Taken Unknown] albuterol sulfate HFA 90 mcg/actuation aerosol inhaler 2 puff IH Q4H PRN #8.5 g 10/23/18 [Last Taken Unknown] dexamethasone 6 mg tablet 6 mg PO BID #10 tab 10/24/18 [Last Taken Unknown] fluticasone 200 mcg-vilanterol 25 mcg/dose powder for inhalation 1 inh IH DAILY #28 ea 10/26/18 [Last Taken Unknown] tiotropium bromide 18 mcg capsule with inhalation device 1 cap IH DAILY #30 inh 10/26/18 [Last Taken Unknown] morphine ER 30 mg tablet,extended release 30 mg PO Q8H PRN #75 tab 10/31/18 [Last Taken Unknown] amoxicillin 875 mg-potassium clavulanate 125 mg tablet 1 tab PO Q12H 10 Days #20 tab 11/08/18 [Last Taken Unknown] fluconazole 150 mg tablet 150 mg PO QWEEK #2 tab 11/08/18 [Last Taken Unknown] - History of Present Illness Narrative: Patient has been having increasing moderate to severe shortness of breath that reached its peak today with O2 saturations in the upper 60s. Patient was unable to even navigate across the room and her programmer daughter arrived and demanded that she come to the hospital. Even here her O2 saturation were still in the low to mid 70s she was in at least moderate respiratory distress. Severity: moderate, severe Treatment IS MANAGER: paramedics Initiating event: Reports: exposure to smoke Frequency of episodes: Reports: occassional episodes Modifying Factors - (Improves): Reports: albuterol, oxygen Modifying Factors (Worsens): Reports: activity Associated Symptoms-Dyspnea: Reports: cough Prior Treatment: Reports: recently seen Review of Systems - Review of Systems Constitutional: Present: See HPI EYE: Present: no symptoms reported ENT: Present: no symptoms reported Respiratory: Present: See HPI Cardiology: Present: no symptoms reported Gastrointestinal/Abdominal: Present: no symptoms reported Genitourinary: Present: no symptoms reported Musculoskeletal: Present: no symptoms reported Skin: Present: no symptoms reported Neurological: Present: no symptoms reported Endocrine: Present: no symptoms reported Hematologic/Lymphatic: Present: no symptoms reported Psych: Present: no symptoms reported Medical History (Last Reviewed 11/11/18 @ 19:45 by Wendy Bell) GRISELDA on CPAP (Chronic) Onset Date: ~08/22/17 Diabetes (Chronic) Onset Date: ~09/03/13 Insomnia (Chronic) Onset Date: ~02/27/14 Depression (Chronic) Onset Date: ~09/03/13 Hypothyroidism (Chronic) Onset Date: ~09/03/13 Tobacco abuse (Chronic) Onset Date: ~07/20/12 COPD (chronic obstructive pulmonary disease) (Chronic) Onset Date: ~10/01/13 GERD (gastroesophageal reflux disease) (Chronic) Onset Date: ~09/03/13 HTN (hypertension) (Chronic) Onset Date: ~09/03/13 Acute low back pain (Chronic) Chronic pain (Chronic) Multiple myeloma Abdominal pain Onset Date: ~04/14/14 Achilles bursitis Onset Date: Unknown Anemia Onset Date: Unknown Arthritis Onset Date: Unknown Asthma Onset Date: ~07/20/12 Bowel obstruction Onset Date: ~08/07/07 CVID (common variable immunodeficiency) Onset Date: Unknown Diarrhea Onset Date: ~09/03/13 Hemorrhoids Onset Date: Unknown Hypersomnolence Onset Date: Unknown Hypogammaglobulinemia Onset Date: ~12/2013 Hypoxemia Onset Date: ~12/27/14 Iron deficiency Onset Date: Unknown Lichen sclerosus et atrophicus of the vulva Onset Date: Unknown Low back pain Onset Date: ~01/23/15 MGUS (monoclonal gammopathy of unknown significance) Onset Date: Unknown Migraine Onset Date: ~02/27/14 Obesity Onset Date: ~09/03/13 Respiratory failure with hypoxia Onset Date: ~12/27/14 Supraventricular tachycardia Onset Date: ~1989 Surgical History: Surgical History (Last Reviewed 11/11/18 @ 19:45 by Wendy Bell) H/O cardiac radiofrequency ablation Onset Date: Unknown H/O cervical discectomy Onset Date: ~2009 H/O colonoscopy Onset Date: ~10/09/14 H/O dilation and curettage Onset Date: ~1996 H/O esophagogastroduodenoscopy Onset Date: Unknown H/O tubal ligation Onset Date: ~1985 History of appendectomy Onset Date: ~1971 History of bone marrow biopsy Onset Date: ~01/04/18 History of cholecystectomy Onset Date: ~1996 History of knee replacement procedure of left knee Onset Date: ~2006 History of knee replacement procedure of right knee Onset Date: ~2006 History of lingual frenulectomy Onset Date: ~06/17/16 History of sacrocolpopexy Onset Date: Unknown History of total abdominal hysterectomy Onset Date: ~1998 Status post revision of total knee replacement Onset Date: ~2008 bilateral Family History: Family History (Last Reviewed 11/11/18 @ 19:45 by Wendy Bell) Mother Cancer lymphoma, tongue Alzheimers disease Sister Kidney disease Daughter Diabetes Grandmother Diabetes Social History: Preferred Language Macedonian Do you have any jain or No cultural preference? Smoking Status Current every day smoker Abuse History No History of abuse Psych History No pertinent hx Alcohol Use rarely (Last Updated 11/08/18 @ 15:22 by Tori Yap RN) No Social History Section defined Physical Exam - Physical Exam General Appearance: Present: wd/wn, alert, moderate distress Head Exam: Present: normal inspection, no evidence of injury Eye Exam: Normal inspection: bilateral, PERRL: bilateral Ears, Nose, Throat: Present: normal ENT inspection, H, normal pharynx Neck: Present: normal inspection, nontender Respiratory: Present: no accessory muscle use, chest nontender, respiratory distress, decreased breath sounds, other - Fine coarse breath sounds with scattered wheezing Cardiovascular/Chest: Present: regular rate, rhythm, no murmur, normal peripheral pulses Gastrointestinal/Abdominal: Present: normal bowel sounds, nontender, nondistended, soft, no organomegaly Rectal Exam: Present: deferred Back Exam: Present: normal inspection, normal range of motion Extremity Exam: Present: normal inspection, non-tender, no edema, normal range of motion Neurological Exam: Present: alert, oriented, normal mood/affect Skin Exam: Present: normal color, warm/dry Lymphatic Exam: Present: no adenopathy Progress - Results and Orders Patient's Lab Results:: I have reviewed the patient's lab results. - Vital Signs Patient's Vital Signs:: I have reviewed the patient's vital signs. Vital Signs: Vital Signs 11/11/18 18:08 11/11/18 18:35 Temperature 37.3 C 37.0 C Pulse Rate 98 98 Respiratory Rate 16 18 Blood Pressure 148/68 139/65 O2 Sat by Pulse Oximetry 99 94 - X-Ray X-Ray #1 X-Ray: chest Interpretation: Reviewed by me - Progress/Reassessment Chief Complaint: Dyspnea Plan - Plan Plan: While the patient did improve somewhat after the breathing treatment she still required oxygen at 1-1/2 L nasal cannula to keep her O2 saturations around 90- 91%. Chest x-ray reveals what could be a left lower lobe pneumonia and patient will be started on Rocephin and Zithromax and will be admitted for pulmonary toilet and oxygen support. Departure Clinical Impression: Acute exacerbation of chronic obstructive pulmonary disease (COPD), Hypoxia Pneumonia Qualifiers: Pneumonia type: due to unspecified organism Laterality: left Lung location: lower lobe of lung Qualified Code(s): J18.1 - Lobar pneumonia, unspecified organism - Departure Disposition: Still a patient Condition: Fair
[2018-11-11 19:22] LABS: Hematocrit 34.4 % (37.0-47.0); Hemoglobin 10.8 gm/dL (12.5-16.0); Mean Corpuscular Hemoglobin 28.9 pg (27-31); Mean Corpuscular Hgb Conc 31.4 g/dl (32-36); Neutrophil # 5.1 K/mm3 (1.3-6.0); Neutrophil % 63.6 % (42-75.0); Platelet Count 240 K/mm3 (150-450); Red Blood Count 3.74 M/mm3 (4.2-5.4); Red Cell Distribution Width 13.7 % (11.5-14.0); White Blood Count 8.1 K/mm3 (4.0-10.5)
[2018-11-11 19:36] LABS: Albumin * 2.4 gm/dl (3.4-5.0); Anion Gap 10.6 mmol/L (6.8-13.8); BUN/Creatinine Ratio 10.8 (9.0-21.6); Bilirubin, Total 0.1 mg/dL (0.0-1.1); Ca. Corrected For Albumin 9.7 mg/dL (8.4-10.2); Calcium * 8.7 mg/dL (7.9-10.9); Carbon Dioxide 32.6 mmol/L (24-32.6); Magnesium 1.9 mg/dL (1.2-2.8); Potassium 4.2 mmol/L (3.4-4.6)
[2018-11-11] MEDS ORDERED: cefTRIAXone SODIUM 1,000 MG/100 ML BAG IV ONE (19:44)
[2018-11-11] MEDS ORDERED: AZITHROMYCIN 500 MG in NORMAL SALINE 250 ML IV ONE (20:30)
[2018-11-11] MEDS ORDERED: ALBUTEROL SULFATE/IPRATROPIUM 3 ML NEBU IH PRN (21:40)
[2018-11-11] MEDS ORDERED: ALBUTEROL SULFATE 200 PUFF INHALER IH PRN (21:40)
[2018-11-11] MEDS ORDERED: MORPHINE SULFATE 30 MG TABLET.SA PO PRN (21:40)
--- NOTE | 2018-11-11 21:49 | HP ---
Chief Complaint - Chief Complaint Date of Service: 11/11/18 Time of Service: 21:49 Chief Complaint: SOB, cough History of Present Illness: 63-year-old female presented to the ER yesterday for ongoing shortness of breath and cough. She states that has been nonproductive but has been there for the last 2 weeks. She denies fever or chills. She has been on Augmentin for diagnosis of pneumonia but states that has not helped much. She also endorsed some swelling in her lower extremities which was newer to her. While in the ER she was requiring oxygen to maintain sats above 90% which is not normal for her. Labs drawn in the ER showed her to have a normal white count at 8.1 with no shift. She was a little anemic at hemoglobin of 10.8 and a hematocrit of 34.4. Her ABG was fairly benign. Her chem panel was within normal limits aside from a random glucose of 208 and a low total protein and albumin. Her BNP came back at 2238. Chest x-ray in the ER also showed bilateral lung infiltrates as well as a left pleural effusion with left basilar atelectasis. Patient was placed in observation on the floor, her vital signs were stable. Medical History (Last Reviewed 11/12/18 @ 10:03 by Marko Aviles MD) GRISELDA on CPAP (Chronic) Onset Date: ~08/22/17 Diabetes (Chronic) Onset Date: ~09/03/13 Insomnia (Chronic) Onset Date: ~02/27/14 Depression (Chronic) Onset Date: ~09/03/13 Hypothyroidism (Chronic) Onset Date: ~09/03/13 Tobacco abuse (Chronic) Onset Date: ~07/20/12 COPD (chronic obstructive pulmonary disease) (Chronic) Onset Date: ~10/01/13 GERD (gastroesophageal reflux disease) (Chronic) Onset Date: ~09/03/13 HTN (hypertension) (Chronic) Onset Date: ~09/03/13 Acute low back pain (Chronic) Chronic pain (Chronic) Multiple myeloma Abdominal pain Onset Date: ~04/14/14 Achilles bursitis Onset Date: Unknown Anemia Onset Date: Unknown Arthritis Onset Date: Unknown Asthma Onset Date: ~07/20/12 Bowel obstruction Onset Date: ~08/07/07 CVID (common variable immunodeficiency) Onset Date: Unknown Diarrhea Onset Date: ~09/03/13 Hemorrhoids Onset Date: Unknown Hypersomnolence Onset Date: Unknown Hypogammaglobulinemia Onset Date: ~12/2013 Hypoxemia Onset Date: ~12/27/14 Iron deficiency Onset Date: Unknown Lichen sclerosus et atrophicus of the vulva Onset Date: Unknown Low back pain Onset Date: ~01/23/15 MGUS (monoclonal gammopathy of unknown significance) Onset Date: Unknown Migraine Onset Date: ~02/27/14 Obesity Onset Date: ~09/03/13 Respiratory failure with hypoxia Onset Date: ~12/27/14 Supraventricular tachycardia Onset Date: ~1989 Surgical History: Surgical History (Last Reviewed 11/12/18 @ 10:03 by Marko Aviles MD) H/O cardiac radiofrequency ablation Onset Date: Unknown H/O cervical discectomy Onset Date: ~2009 H/O colonoscopy Onset Date: ~10/09/14 H/O dilation and curettage Onset Date: ~1996 H/O esophagogastroduodenoscopy Onset Date: Unknown H/O tubal ligation Onset Date: ~1985 History of appendectomy Onset Date: ~1971 History of bone marrow biopsy Onset Date: ~01/04/18 History of cholecystectomy Onset Date: ~1996 History of knee replacement procedure of left knee Onset Date: ~2006 History of knee replacement procedure of right knee Onset Date: ~2006 History of lingual frenulectomy Onset Date: ~06/17/16 History of sacrocolpopexy Onset Date: Unknown History of total abdominal hysterectomy Onset Date: ~1998 Status post revision of total knee replacement Onset Date: ~2008 bilateral Family History: Family History (Last Reviewed 11/12/18 @ 10:03 by Marko Aviles MD) Mother Cancer lymphoma, tongue Alzheimers disease Sister Kidney disease Daughter Diabetes Grandmother Diabetes Social History: Patient Lives/Resources With Spouse Utilized Occupation housewife Preferred Language Thai Do you have any sikh or Yes: Yazidism cultural preference? Smoking Status Former smoker Have you smoked in the past 12 Yes months Do you dip or chew tobacco No Abuse History No History of abuse Psych History No pertinent hx Alcohol Use rarely (Last Updated 11/08/18 @ 15:22 by Tori Yap RN) No Social History Section defined Review Of Systems (GEN) - Review of Systems Generalized/Overall Review: Present: Weight gain. Absent: Chills, Fever EENTM: Present: Throat Pain - From coughing. Absent: Nose Congestion Respiratory: Present: Cough, Shortness of Breath, Wheezing Cardiac: Present: Edema - Bilateral lower extremity swelling. Absent: Chest Pain Abdominal: Absent: Nausea, Vomiting Genitourinary: Present: No Symptoms Reported Musculoskeletal: Present: Back Pain Neurological: Present: No Symptoms Reported Skin: Present: No Symptoms Reported Endocrine: Present: No Symptoms Reported Immunizations: IMMUNIZATION HX Immunizations Up to Date Yes History of Influenza Vaccine Yes Hx Pneumococcal Vaccination Yes Allergies/Adverse Reactions: Allergies Allergy/AdvReac Type Severity Reaction Status Date / Time aripiprazole [From Abilify] Allergy Neuroleptic Verified 11/08/18 14:40 Syndrome bupropion HCl AdvReac Verified 11/08/18 14:40 [From Wellbutrin] Home Medications: HOME MEDICATIONS Ferrous Sulfate [Iron] 325 mg PO DAILY 09/02/17 [Last Taken 11/11/18 12:00] Cetirizine HCl 10 mg PO DAILY 11/16/17 [Last Taken 11/11/18 12:00] Cholecalciferol (Vitamin D3) [Vitamin D3] 10,000 unit PO DAILY 11/16/17 [Last Taken 11/11/18 12:00] Pioglitazone HCl 30 mg PO DAILY 11/16/17 [Last Taken 11/10/18 21:00] Metoprolol Succinate [Toprol Xl] 25 mg PO BID #60 tablet.sa 11/18/17 [Last Taken 11/11/18 12:00] divalproex 250 mg tablet,delayed release 250 mg PO BID #60 tab 04/05/18 [Last Taken 11/11/18 12:00] flecainide 100 mg tablet 50 mg PO BID #60 tab 06/22/18 [Last Taken 11/11/18 12:00] glimepiride 4 mg tablet 4 mg PO BID #60 tab 07/31/18 [Last Taken 11/11/18 12:00] levothyroxine 112 mcg tablet 112 mcg PO DAILY #30 tab 09/25/18 [Last Taken Unknown] albuterol sulfate HFA 90 mcg/actuation aerosol inhaler 2 puff IH Q4H PRN #8.5 g 10/23/18 [Last Taken 11/11/18 17:00] fluticasone 200 mcg-vilanterol 25 mcg/dose powder for inhalation 1 inh IH DAILY #28 ea 10/26/18 [Last Taken 11/10/18 21:00] ALPRAZolam [Xanax] 0.5 mg PO DAILY PRN 11/11/18 [Last Taken 11/10/18] Albuterol Sulfate/Ipratropium [Duoneb 2.5-0.5MG/3ML Soln] 3 ml INHALATION Q4H PRN 11/11/18 [Last Taken Unknown] Desvenlafaxine Succinate [Pristiq] 100 mg PO DAILY 11/11/18 [Last Taken 11/11/18 12:00] Melatonin 5 mg PO HS 11/11/18 [Last Taken Unknown] Morphine Sulfate [Morphine Sulfate ER] 30 mg PO TID PRN 11/11/18 [Last Taken 11/10/18] Tiotropium [place] [Spiriva] 1 cap INHALATION DAILY 11/11/18 [Last Taken 11/11/18 12:00] Turmeric 400 mg PO DAILY 11/11/18 [Last Taken 11/11/18 12:00] Exam - Exam Vital Signs: Vital Signs - Last Taken Temp 36.9 C 11/11/18 19:47 Pulse 95 11/11/18 20:10 Resp 20 11/11/18 20:10 BP 136/56 11/11/18 20:10 Pulse Ox 97 11/11/18 20:10 ENT Exam: Present: hearing grossly normal. Absent: nasal congestion, nasal drainage Neck: Present: full range of motion, supple Back Exam: Present: vertebral tenderness Respiratory: Present: no accessory muscle use, decreased breath sounds, crackles - Bilateral bases, wheezing - Diffuse bilaterally. Absent: respiratory distress Cardiovascular/Chest: Present: normal peripheral pulses, edema - 1+ pitting edema bilaterally up to mid donis Abdomen: Present: Normal bowel sounds, soft, nontender /Rectal: Present: Exam deferred Skin Exam: Present: normal color, warm/dry Appearance: Present: appropriate appearance, appropriate insight Eye contact: Present: cooperative, good eye contact Thoughts: Present: normal thought pattern, normal mood /affect Diagnostic Studies: Abnormal Lab Results 11/11/18 11/11/18 11/11/18 Range/Units 19:05 19:10 19:15 RBC 3.74 L (4.2-5.4) M/mm3 Hgb 10.8 L (12.5-16.0) gm/dL Hct 34.4 L (37.0-47.0) % MCHC 31.4 L (32-36) g/dl Immature Gran % (Auto) 1.00 H (0.001-0.429) % Immature Gran # (Auto) 0.08 H (0.000-0.0310) K/mm3 Monocytes % 10.0 H (0.0-9) % Eosinophils % 4.8 H (0.0-3.0) % pO2 61.3 L (83.0-108.0) mmHg Total CO2 25.2 H (19.0-24.0) mmol/L ABG O2 Sat (Measured) 91.4 L (94.0-98.0) % Plasma Sodium 143 H (130-142) mmol/L Random Glucose 208 H (70-110) mg/dL ALT 8 L (19-67) U/L B-Natriuretic Peptide (5-205) pg/mL Total Protein 6.0 L (6.2-8.2) gm/dL Albumin 2.4 L (3.4-5.0) gm/dl 11/11/18 Range/Units 19:15 RBC (4.2-5.4) M/mm3 Hgb (12.5-16.0) gm/dL Hct (37.0-47.0) % MCHC (32-36) g/dl Immature Gran % (Auto) (0.001-0.429) % Immature Gran # (Auto) (0.000-0.0310) K/mm3 Monocytes % (0.0-9) % Eosinophils % (0.0-3.0) % pO2 (83.0-108.0) mmHg Total CO2 (19.0-24.0) mmol/L ABG O2 Sat (Measured) (94.0-98.0) % Plasma Sodium (130-142) mmol/L Random Glucose (70-110) mg/dL ALT (19-67) U/L B-Natriuretic Peptide 2238 H (5-205) pg/mL Total Protein (6.2-8.2) gm/dL Albumin (3.4-5.0) gm/dl Laboratory Results WBC 8.1 K/mm3 (4.0-10.5) 11/11/18 19:10 RBC 3.74 M/mm3 (4.2-5.4) L 11/11/18 19:10 Hgb 10.8 gm/dL (12.5-16.0) L 11/11/18 19:10 Hct 34.4 % (37.0-47.0) L 11/11/18 19:10 MCV 92.0 fl (78-100) 11/11/18 19:10 MCH 28.9 pg (27-31) 11/11/18 19:10 MCHC 31.4 g/dl (32-36) L 11/11/18 19:10 RDW 13.7 % (11.5-14.0) 11/11/18 19:10 Plt Count 240 K/mm3 (150-450) 11/11/18 19:10 MPV 10.0 fl (8-12.5) 11/11/18 19:10 Immature Gran % (Auto) 1.00 % (0.001-0.429) H 11/11/18 19:10 Immature Gran # (Auto) 0.08 K/mm3 (0.000-0.0310) H 11/11/18 19:10 Neutrophils % 63.6 % (42-75.0) 11/11/18 19:10 Lymphocytes % 20.0 % (20-51) 11/11/18 19:10 Monocytes % 10.0 % (0.0-9) H 11/11/18 19:10 Eosinophils % 4.8 % (0.0-3.0) H 11/11/18 19:10 Basophils % 0.6 % (0.0-1.0) 11/11/18 19:10 Nucleated RBC % 0.0 k/mm3 (0-1) 11/11/18 19:10 Neutrophils # 5.1 K/mm3 (1.3-6.0) 11/11/18 19:10 Lymphocytes # 1.61 k/mm3 (1.5-3.5) 11/11/18 19:10 Monocytes # 0.8 k/mm3 (0.0-1.0) 11/11/18 19:10 Eosinophils # 0.4 k/mm3 (0.0-0.7) 11/11/18 19:10 Absolute Basophils 0.1 k/mm3 (0.0-0.1) 11/11/18 19:10 pCO2 40.2 mmHg (32.0-45.0) 11/11/18 19:05 pO2 61.3 mmHg (83.0-108.0) L 11/11/18 19:05 HCO3 24.0 mmol/L (21.0-28.0) 11/11/18 19:05 Total CO2 25.2 mmol/L (19.0-24.0) H 11/11/18 19:05 Base Excess -0.9 mmol/L (-2.0-3.0) 11/11/18 19:05 ABG pH 7.39 (7.35-7.45) 11/11/18 19:05 ABG O2 Sat (Measured) 91.4 % (94.0-98.0) L 11/11/18 19:05 Sodium 141 mmol/L (132-142) 11/11/18 19:15 Plasma Sodium 143 mmol/L (130-142) H 11/11/18 19:15 Potassium 4.2 mmol/L (3.4-4.6) D 11/11/18 19:15 Chloride 102 mmol/L (97-106) 11/11/18 19:15 Carbon Dioxide 32.6 mmol/L (24-32.6) 11/11/18 19:15 Anion Gap 10.6 mmol/L (6.8-13.8) 11/11/18 19:15 BUN 10 mg/dL (3-23) D 11/11/18 19:15 Creatinine 0.93 mg/dL (0.4-1.4) 11/11/18 19:15 Est GFR (Non-Af Amer) 65 mL/min (60-130) D 11/11/18 19:15 BUN/Creatinine Ratio 10.8 (9.0-21.6) 11/11/18 19:15 Random Glucose 208 mg/dL (70-110) H 11/11/18 19:15 Calcium 8.7 mg/dL (7.9-10.9) 11/11/18 19:15 Calcium Adj for Albumin 9.7 mg/dL (8.4-10.2) 11/11/18 19:15 Magnesium 1.9 mg/dL (1.2-2.8) 11/11/18 19:15 Total Bilirubin 0.1 mg/dL (0.0-1.1) 11/11/18 19:15 AST 8 U/L (0-48) 11/11/18 19:15 ALT 8 U/L (19-67) L 11/11/18 19:15 Alkaline Phosphatase 105 U/L (50-170) 11/11/18 19:15 B-Natriuretic Peptide 2238 pg/mL (5-205) H 11/11/18 19:15 Total Protein 6.0 gm/dL (6.2-8.2) L 11/11/18 19:15 Albumin 2.4 gm/dl (3.4-5.0) L 11/11/18 19:15 Influenza Type A Ag Negative (NEGATIVE) 11/11/18 18:58 Influenza Type B Ag Negative (NEGATIVE) 11/11/18 18:58 Group A Strep Rapid Negative (NEGATIVE) 11/11/18 18:58 Assessment/Plan - Narrative Narrative: Suspect patient to have more fluid overload condition whether this be new onset congestive heart failure as patient does not have the signs and symptoms of a pneumonia. She has been on Augmentin for the last week or so which I advised her to finish taking that course of antibiotic. Though she has no fever, no productive cough, no excessive sputum production, no white elevated white count. We will give her a one-time dose of IV Lasix to see how she does with this. If she has significant improvement overnight then will likely be able to get her out tomorrow and have her follow-up with either myself or Dr. Aviles in the next few days for outpatient workup including echocardiogram. She was requiring oxygen to maintain sats above 90 which is not normal for her, will continue this until we can safely wean her off of it. Otherwise her vital signs have been stable We will continue her breathing treatments for COPD and wheezing. Her only other concern at this time is her chronic back pain. She was recently diagnosed with multiple myeloma. Will continue her home medication of morphine that she takes 3 times daily. We will start her on a regular diet. No DVT prophylaxis needed as she will likely be here for no more than 24 hours. Nurses will call with any questions or concerns. - Assessment/Plan (1) Elevated brain natriuretic peptide (BNP) level Problem: Acute (2) Pneumonia Problem: Acute Qualifiers: Pneumonia type: due to unspecified organism Laterality: left Lung location: lower lobe of lung Qualified Code(s): J18.1 - Lobar pneumonia, unspecified organism (3) Hypoxemia requiring supplemental oxygen Problem: Chronic (4) COPD (chronic obstructive pulmonary disease) Problem: Chronic Qualifiers: COPD type: chronic bronchitis Chronic bronchitis type: mucopurulent Qualified Code(s): J41.1 - Mucopurulent chronic bronchitis (5) Chronic pain Problem: Chronic Qualifiers: Chronic pain type: chronic pain syndrome Qualified Code(s): G89.4 - Chronic pain syndrome
[2018-11-11] MEDS ORDERED: FUROSEMIDE 10 MG/ML VIAL IV ONE (21:50)
[2018-11-11] MEDS ORDERED: MELATONIN 3,000 MCG TABLET PO SCH (22:30)
[2018-11-11] MEDS: IBUPROFEN 600 MG TABLET PO PRN (22:33)
[2018-11-11] MEDS: FLECAINIDE ACETATE 100 MG TABLET PO SCH (22:34)
[2018-11-11] MEDS ORDERED: METOPROLOL SUCCINATE 50 MG TABLET.SA PO ONE (22:47)
[2018-11-11] MEDS: METOPROLOL SUCCINATE 25 MG TABLET.SA PO SCH (22:48)
[2018-11-12] MEDS ORDERED: LEVOTHYROXINE SODIUM 112 MCG TABLET PO SCH (06:30)
[2018-11-12] MEDS ORDERED: PIOGLITAZONE HCL 15 MG TABLET PO SCH (07:00)
[2018-11-12] MEDS ORDERED: GLIMEPIRIDE 4 MG TABLET PO SCH (07:00)
[2018-11-12] MEDS ORDERED: ALBUTEROL SULFATE 2.5 MG/0.5 ML VIAL.NEB IH PRN (07:19)
[2018-11-12] MEDS: METOPROLOL SUCCINATE 25 MG TABLET.SA PO SCH (07:59)
[2018-11-12] MEDS: FLECAINIDE ACETATE 100 MG TABLET PO SCH (07:59)
[2018-11-12] MEDS ORDERED: DIVALPROEX SODIUM 250 MG TABLET.DR PO SCH (09:00)
[2018-11-12] MEDS ORDERED: VILANTEROL IH SCH (09:00)
[2018-11-12] MEDS ORDERED: FLUTICASONE IH SCH (09:00)
[2018-11-12] MEDS ORDERED: TURMERIC 400 MG PO SCH (09:00)
[2018-11-12] MEDS ORDERED: TIOTROPIUM BROMIDE 5 CAP INHALER IH SCH (09:00)
[2018-11-12] MEDS: IBUPROFEN 600 MG TABLET PO PRN (12:50)
--- NOTE | 2018-11-12 16:09 | DS ---
(1) Elevated brain natriuretic peptide (BNP) level Problem: Acute (2) Pneumonia Problem: Acute Qualifiers: Pneumonia type: due to unspecified organism Laterality: left Lung location: lower lobe of lung Qualified Code(s): J18.1 - Lobar pneumonia, unspecified organism (3) Hypoxemia requiring supplemental oxygen Problem: Chronic (4) COPD (chronic obstructive pulmonary disease) Problem: Chronic Qualifiers: COPD type: chronic bronchitis Chronic bronchitis type: mucopurulent Qualified Code(s): J41.1 - Mucopurulent chronic bronchitis (5) Chronic pain Problem: Chronic Qualifiers: Chronic pain type: chronic pain syndrome Qualified Code(s): G89.4 - Chronic pain syndrome Description of Stay: Patient brought in to the hospital for worsening shortness of breath for the last 2 weeks. It was thought that she was having difficulty with the pneumonia that she was diagnosed with a week prior after she been started on Augmentin and she was requiring oxygen to maintain sats above 90%. Her signs and symptoms pointed more towards being fluid overloaded and actual infectious pneumonia. Her BNP came back at greater than 2200 and her x-ray also confirmed vascular congestion. She was given a dose of IV Lasix and diuresed greater than 1600 mL's overnight. She was also placed on fluid restriction. Today when seen she was significantly improved, no longer required oxygen to maintain sats. She states she had been able to breathe like this for quite some time. We will discharge her home in stable condition with directions to follow-up with her PCP or myself in the next 3-5 days which she agrees to do. She will need an outpatient workup for possible congestive heart failure. We will send her home on a short course of Lasix to be taken over the next 3-5 days. We will hold off on starting her on a beta-vivek and ANGELA inhibitor until we have an echo to determine what exactly is going on with the heart. After diuresing her O2 sats return to normal and there is her vital signs are stable. Procedures Performed: none Results and Findings: Lab Pending Results 11/11/18 18:58: Influenza Type A Ag Negative, Influenza Type B Ag Negative 11/11/18 18:58: Group A Strep Rapid Negative 11/11/18 19:05: pCO2 40.2, pO2 61.3 L, HCO3 24.0, Total CO2 25.2 H, Base Excess -0.9, ABG pH 7.39, ABG O2 Sat (Measured) 91.4 L 11/11/18 19:10: WBC 8.1, RBC 3.74 L, Hgb 10.8 L, Hct 34.4 L, MCV 92.0, MCH 28.9, MCHC 31.4 L, RDW 13.7, Plt Count 240, MPV 10.0, Immature Gran % (Auto) 1.00 H, Immature Gran # (Auto) 0.08 H, Neutrophils % 63.6, Lymphocytes % 20.0, Monocytes % 10.0 H, Eosinophils % 4.8 H, Basophils % 0.6, Nucleated RBC % 0.0, Neutrophils # 5.1, Lymphocytes # 1.61, Monocytes # 0.8, Eosinophils # 0.4, Absolute Basophils 0.1 11/11/18 19:15: Sodium 141, Plasma Sodium 143 H, Potassium 4.2 D, Chloride 102, Carbon Dioxide 32.6, Anion Gap 10.6, BUN 10 D, Creatinine 0.93, Est GFR (Non-Af Amer) 65 D, BUN/Creatinine Ratio 10.8, Random Glucose 208 H, Calcium 8.7, Calcium Adj for Albumin 9.7, Magnesium 1.9, Total Bilirubin 0.1, AST 8, ALT 8 L, Alkaline Phosphatase 105, Total Protein 6.0 L, Albumin 2.4 L 11/11/18 19:15: B-Natriuretic Peptide 2238 H Discharge Location: Home Disposition: Home self-care Condition: Good Discharge Activity: Activity as tolerated Discharge Diet: Low salt Referrals: Marko Aviles MD [Primary Care Provider] - One Week Prescriptions (Any new or edited meds): Furosemide [Lasix] 20 mg PO DAILY #10 tab Complete Home Medications List: Complete Home Medication List: Ferrous Sulfate [Iron] 325 mg PO DAILY 09/02/17 Cetirizine HCl 10 mg PO DAILY 11/16/17 Cholecalciferol (Vitamin D3) [Vitamin D3] 10,000 unit PO DAILY 11/16/17 Pioglitazone HCl 30 mg PO DAILY 11/16/17 Metoprolol Succinate [Toprol Xl] 25 mg PO BID #60 tablet.sa 11/18/17 divalproex 250 mg tablet,delayed release 250 mg PO BID #60 tab 04/05/18 flecainide 100 mg tablet 50 mg PO BID #60 tab 06/22/18 glimepiride 4 mg tablet 4 mg PO BID #60 tab 07/31/18 levothyroxine 112 mcg tablet 112 mcg PO DAILY #30 tab 09/25/18 albuterol sulfate HFA 90 mcg/actuation aerosol inhaler 2 puff IH Q4H PRN #8.5 g 10/23/18 fluticasone 200 mcg-vilanterol 25 mcg/dose powder for inhalation 1 inh IH DAILY #28 ea 10/26/18 ALPRAZolam [Xanax] 0.5 mg PO DAILY PRN 11/11/18 Albuterol Sulfate/Ipratropium [Duoneb 2.5-0.5MG/3ML Soln] 3 ml INHALATION Q4H PRN 11/11/18 Desvenlafaxine Succinate [Pristiq] 100 mg PO DAILY 11/11/18 Melatonin 5 mg PO HS 11/11/18 Morphine Sulfate [Morphine Sulfate ER] 30 mg PO TID PRN 11/11/18 Tiotropium [place] [Spiriva] 1 cap INHALATION DAILY 11/11/18 Turmeric 400 mg PO DAILY 11/11/18 Furosemide [Lasix] 20 mg PO DAILY #10 tab 11/12/18
[2018-11-12 17:12] VITALS: BP 134/65
[2018-11-12] MEDS ORDERED: MELATONIN 5 MG PO SCH (21:00)
== END 2018-11-12 17:31 | disposition home or self-care (01) ==
LOC: MS 17:57 → ER 17:57 → MS 20:30
PROVIDERS: ADMIT Family Medicine; ATTEND Family Medicine
CPT/HCPCS: 36415; 36600; 71020; 71046; 80053; 82803; 83519; 83735; 83880; 85025; 87040; 87081; 87400; 87430; 87449; 94640; 94664; 96365; 96367; 96375; 99285; G0378